=== PATIENT | male | born 1965 | race Caucasian/White ===

== ENCOUNTER 2023-11-30 18:26 | Emergency (ER) | payer MEDICARE, MEDICAID, SELFPAY ==
--- NOTE | ~2023-11-30 | CT_ITS ---
EXAMINATION: CT HEAD WITHOUT CONTRAST CLINICAL INFORMATION: Posterior head pain status post coughing fit. COMPARISON: None available at time of dictation. TECHNIQUE: Contiguous axial imaging was performed from the skull base to vertex without intravenous administration of contrast. This CT examination was performed using dose optimization techniques as appropriate, variously including the following: *Automated exposure control *Adjustment of mA and/or kV according to patient size (this includes techniques or standardized protocols for targeted exams where dose is matched to indication/reason for exam; i.e. extremities or head) *Use of iterative reconstruction technique DLP: 1519 mGy-cm FINDINGS: There is acute subarachnoid hemorrhage centered within the prepontine cistern which extends into the left sylvian fissure and into the anterior aspect of the third ventricle. Blood extends inferiorly along the anterior surface of the kalani. The epicenter of the hemorrhage appears to be at the level of the basilar apex where there is a 1.7 x 1.4 cm blood clot. Underlying basilar artery aneurysm is suspected. There is frontal encephalomalacia. No evidence of acute/subacute cerebral or cerebellar infarction. No midline shift. The temporal horns appear minimally enlarged. No gross hydrocephalus. There is a small anterior right middle cranial fossa arachnoid cyst. The orbits are symmetric and within normal limits. The calvarium is intact. The mastoid air cells are clear. Visualized paranasal sinuses are well aerated. CT/CT head/brain wo IV con IMPRESSION: There is acute subarachnoid hemorrhage centered within the prepontine cistern which extends into the left sylvian fissure and into the anterior aspect of the third ventricle. Blood extends inferiorly along the anterior surface of the kalani. The epicenter of the hemorrhage appears to be at the level of the basilar apex where there is a 1.7 x 1.4 cm blood clot. 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 CTA of head and neck is recommended. This critical result was discussed with GLADYS Martinez at 7:50 PM on 11/30/2023 and it was ascertained that the content and urgency of the report was understood at the time of direct communication.
--- NOTE | ~2023-11-30 | CT_ITS ---
EXAMINATION: CT ANGIOGRAM HEAD CT ANGIOGRAM NECK CLINICAL INFORMATION: Subarachnoid hemorrhage COMPARISON: CT head 11/30/2023 TECHNIQUE: Test bolus sequences followed by intravenous administration 70 mL of Omnipaque 350. Helical imaging was performed in the axial plane from the aortic arch to the skull vertex. Delayed postcontrast imaging of the head was also performed. The data was processed at the blood bank laboratory technologist's workstation for generation of MIP sequences. Angled MIPs and volume rendered reformatted images were also generated at an offline 3D workstation. Stenoses are assessed in accordance with David et al. Quantification of Carotid Stenosis on CT Angiography. AJR 2006. 27(1):13-19. [address] CT examination was performed using dose optimization techniques as appropriate, variously including the following: *Automated exposure control *Adjustment of mA and/or kV according to patient size (this includes techniques or standardized protocols for targeted exams where dose is matched to indication/reason for exam; i.e. extremities or head) *Use of iterative reconstruction technique DLP: 1619.95 mGy-cm FINDINGS: CT HEAD: Aneurysmal distribution of subarachnoid hemorrhage centered within the suprasellar cistern, extending into the lamina terminalis, left MCA cistern, and inferiorly within the posterior fossa cisterns is again noted. Redemonstrated presumably posttraumatic chronic encephalomalacia/gliosis within the anteroinferior frontal lobes, anterior bilateral temporal lobes, and left lateral temporal lobe. Query small hemorrhagic contusion within the anterior left temporal pole for which continued attention on follow-up imaging is advised. The orbits are grossly normal. Trace polypoid mucosal disease in the right maxillary sinus. Osseous structures are intact. CTA HEAD: There is a somewhat irregular lobulated morphology inferomedially projecting 2.8 mm saccular aneurysm arising from the right paraophthalmic ICA and smaller 2 mm inferomedially projecting left paraophthalmic ICA saccular aneurysm arising at a similar level. No other intracranial saccular aneurysms specifically without evidence of a ruptured basilar artery aneurysm. The right superior cerebellar artery is diminutive demonstrating poor contrast opacification beyond its origin, which may be on the basis of small vessel caliber below resolution of this examination however a component of vasospasm is not excluded. Otherwise, no evidence of vasospasm with otherwise widely patent anterior and posterior circulation. Trace calcific plaque along the left cavernous ICA without stenosis. No high flow vascular malformations. Timing of the contrast bolus allows assessment of the major dural venous sinuses, which all opacify normally CTA NECK: Classic 3 vessel branching pattern of the aortic arch. Origins of the great vessels are widely patent. Aneurysmal dilatation of the left subclavian artery origin measuring up to 2.1 cm. The common carotid arteries are widely patent. Trace partially calcified atherosclerosis of the carotid bifurcations without stenosis. Widely patent internal carotid arteries. The vertebral arteries are codominant The vertebral artery ostia are widely patent. Both vertebral arteries are widely patent throughout their extracranial cervical course. CT NECK: The asymmetric enlargement and heterogeneous enhancement of the left palatine tonsillar fossa (image 67, series 6), which may reflect asymmetric tonsillar tissue however recommend correlation with direct inspection to exclude underlying mucosal lesion. Soft tissue along the base of tongue partially effacing the vallecula, presumably lingual tonsillar hyperplasia. Reversal of the normal cervical lordosis and cervical spondylitic disease. Elongated and ossified right styloid process can be correlated for [place]field syndrome. Left posterior maxillary molar dental justin. CT/CT angio head neck IMPRESSION: 1. Redemonstrated aneurysmal distribution of subarachnoid hemorrhage centered within the basilar cisterns as above. 2. Query possible small hemorrhagic contusion within the anterior left temporal pole for which continued attention on follow-up imaging is advised. 3. Redemonstrated presumably posttraumatic chronic encephalomalacia/gliosis within the anteroinferior frontal lobes, anterior bilateral temporal lobes, and left lateral temporal lobe. 4. Somewhat irregular lobulated morphology inferomedially projecting 2.8 mm saccular aneurysm arising from the right paraophthalmic ICA and smaller 2 mm inferomedially projecting left paraophthalmic ICA saccular aneurysm arising at a similar level. 5. No other intracranial saccular aneurysms specifically without evidence of a ruptured basilar artery aneurysm. 6. The right superior cerebellar artery is diminutive demonstrating poor contrast opacification beyond its origin, which may be on the basis of small vessel caliber below resolution of this examination however a component of vasospasm is not excluded. Otherwise, no evidence of vasospasm is seen. 7. Aneurysmal dilatation of the left subclavian artery origin measuring up to 2.1 cm. 8. Widely patent cervical vasculature. 9. Asymmetric enlargement and heterogeneous enhancement of the left palatine tonsillar fossa (image 67, series 6), which may reflect asymmetric tonsillar tissue however recommend correlation with direct inspection to exclude underlying mucosal lesion. Impression 2 and 4 communicated to Severo GRAHAM on 11/30/2023 at 21:14.
[2023-11-30 18:35] VITALS: BP 178/102; PULSE 68; RESP 20; TEMP 37.1; O2SAT 97; BMI 30.6
--- NOTE | 2023-11-30 18:37 | ED.HA ---
HPI - Headache General Chief Complaint: Headache Stated Complaint: headache 4 days, felt a pop in head Time Seen by Provider: 11/30/23 19:28 Source: patient, RN notes reviewed and old records reviewed Mode of arrival: ambulatory Limitations: no limitations History of Present Illness ED Provider: Susan FISH Narrative: 50-year-old male with past medical history significant for remote TBI about 40 years ago, denies any medical history presents for evaluation of a headache. Patient reports that 4 days ago, on Monday he had a coughing fit He reports that while coughing he felt a pop in the back of his head and his neck He felt a warm sensation that he describes as ?it felt like blood rushing up the back of my neck. ? Patient states that he vomited 1 time on Monday He has felt a posterior headache and pressure behind his eyes ever since that he feels has been getting gradually worse Patient complains of 8/10 headache. He has been taking ibuprofen and Tylenol at home with no improvement He reports feeling dizzy He has not had any difficulty with speech and denies any weakness Related Data Allergies Allergy/AdvReac Type Severity Reaction Status Date / Time No Known Allergies Allergy Verified 11/30/23 18:40 Review of Systems Constitutional: Constitutional: Denies body ache(s), Denies chills, Denies fever(s) and Reports headache(s) Eyes: Eyes: Denies blurry vision and Denies exophthalmos ENT: Reports dizziness and Reports headache(s) Cardiovascular: Cardiovascular: Denies chest pain and Denies dyspnea Respiratory: Respiratory: Denies cough and Denies dyspnea Gastrointestinal: Gastrointestinal: Denies abdominal pain, Denies nausea and Reports vomiting Musculoskeletal: Musculoskeletal: Denies back pain Integumentary/Breasts: Skin/Breast: Denies rash Neurologic: Denies confusion, Reports dizziness and Reports headache(s) Psychiatric: Psychiatric: Denies confusion PMFSH Social History Social History Smoked in Last 30 Days: No Advance Directives: No Advance Directives Information Provided: No Do you have a plan to hurt others: No Plan Physical Exam Vital Signs: Vital Signs: Last Vital Signs Temp 98.7 F 11/30/23 21:17 Pulse 75 11/30/23 21:17 Resp 16 11/30/23 21:17 BP 139/78 11/30/23 21:17 Pulse Ox 97 11/30/23 21:17 O2 Del Method Room Air 11/30/23 20:54 BMI result Body Mass Index 30.6 Const: General: No confusion Nutritional Appearance: well nourished Orientation/consciousness: No confusion HEENT: Head: Yes normocephalic and Yes atraumatic Throat: Yes posterior oropharynx normal Eyes: Eyelids: Yes eyelids normal Conjunctivae: conjunctivae normal Sclerae: sclerae normal Corneas: corneas normal Pupils: Equal, round and reactive pupils present EOM: EOMs intact bilaterally Neck: Neck: Yes full ROM Resp: Effort & Inspection: normal respiratory effort, able to speak in complete sentences and not labored Cardio: Rate: regular rate Rhythm: regular rhythm GI: Inspection: No distended Palpation (GI): Soft to palpation, not firm, nontender, no guarding and not rigid Skin: General skin exam: elasticity normal Neuro: General: No confusion Cranial nerves: Yes CN's II-XII intact bilaterally, Yes Equal, round and reactive pupils present and Yes Bilaterally intact EOM present Cognition (Neuro): normal cognition Course Course Course Narrative: This is a Rapid Medical Examination (RME) performed by Bea Nava PA-C in triage. Full HPI, ROS, assessment and treatment plan per primary provider in the Main ED. 58 year old male hx of bipolar and depression here for eval of posterior headache x4 days. reports that during coughing fit her felt a pop in his posterior neck and felt warm sensation donald into the back of his head. reports constant LACY since with pressure behind his eyes. taking motrin at home w/o relief. last dose 4 hours ago. Not on anticoagulation. + exam nonfocal. cerebellum intact. ambulating with steady gait. perrla. No slurred speech. No pronator drift. No facial droop. Hypertensive to 148/102. > discussed with attending Dr. Olivier who is agreeable with dry CT > open hearth melter aware, patient being brought back to ED bed. Plan: Labs, CT head/brain Reevaluation(s) Reevaluation #1: Received call from Teleradiology the patient has an acute subarachnoid hemorrhage. It was recommended to get a CT angiography of the head and neck which are ordered. I also called [facility] transfer line. I discussed with the cosmetic account coordinator and I am awaiting call back from Neurointerventional. Time: 20:09 Reevaluation #2: Received call back from [facility], I spoke to Dr. Maldonado, neuro interventionalist. She will accept transfer of care under her service. She recommends starting nicardipine drip and keeping the patient's blood pressure under 140 systolic. All imaging will be uploaded for [facility] to be able to view on [facility], and disc will be provided as well for transport. Time: 20:28 Medications Administered Discontinued Medications Generic Name Dose Route Start Last Admin Trade Name Jacob PRN Reason Stop Dose Admin Hydromorphone HCl 1 mg 11/30/23 20:29 11/30/23 20:42 Hydromorphone Hcl 1 Mg/Ml Syringe IVPUSH 11/30/23 20:30 1 mg ONCE ONE Administration Protocol Nicardipine HCl 25 mg/ Sodium 260 mls @ 0 mls/hr 11/30/23 20:30 11/30/23 20:45 Chloride IVCONT 5 mg/hr .Q0M FRANKIE 52 mls/hr Administration Protocol Per Protocol Iohexol 100 ml 11/30/23 20:25 11/30/23 20:26 Iohexol 350 Mg/Ml 100 Ml Infus..Btl IV 11/30/23 20:26 70 ml ONCE ONE Administration Labetalol HCl 5 mg 11/30/23 19:59 11/30/23 20:06 Labetalol Hcl 100 Mg/20 Ml Vial IVPUSH 11/30/23 20:00 5 mg ONCE ONE Administration Metoclopramide HCl 10 mg 11/30/23 19:59 11/30/23 20:08 Metoclopramide Hcl 10 Mg/2 Ml Vial IVPUSH 11/30/23 20:00 10 mg ONCE ONE Administration Morphine Sulfate 4 mg 11/30/23 19:59 11/30/23 20:08 Morphine Sulfate 4 Mg/Ml Cartridge IVPUSH 11/30/23 20:00 4 mg ONCE ONE Administration Protocol Medical Decision Making Medical Decision Making MDM Narrative: 58-year-old male presents for evaluation of a sudden onset headache that started 4 days prior to arrival. His CT scan shows a subarachnoid hemorrhage in his acute center within the prepontine cistern which extends into the left sylvian fissure and into the anterior aspect of the 3rd ventricle. The hemorrhage appears to begin at the level of the basilar apex. CT angiography of the head and neck is recommended. In the meantime I am working on getting the patient transferred to tertiary facility with neuro interventional capabilities Differential Diagnosis Differential Diagnoses: The differential diagnosis associated with the presentation includes Subarachnoid hemorrhage Acute headache Hypertension Subdural hematoma Lab Data MDM Lab Attestation statement: I reviewed the patient's lab results. Mild leukocytosis to 12.3 K. There is also a mild anemia with a hemoglobin of 13.5 and hematocrit 38.3. 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 Patient's potassium is just below normal at 3.2, chloride of 110, anion gap of 11 and a glucose of 118 which was random. 11/30/23 19:07 11/30/23 19:07 Labs: Lab Results 11/30/23 11/30/23 Range/Units 19:07 20:40 WBC 12.3 H (4.8-10.8) X10*3/uL RBC 4.35 L (4.60-5.80) X10*6/uL Hgb 13.5 L (14.0-18.0) g/dl Hct 38.3 L (42.0-52.0) % MCV 88.0 (80.0-98.0) fL MCH 31.0 (27.0-33.0) pg MCHC 35.2 (31.0-36.0) g/dl RDW 12.7 (11.0-16.0) % Plt Count 241 (160-400) X10*3/uL MPV 9.3 L (9.4-12.4) fL Immature Gran % (Auto) 0.2 (0.0-0.4) % Neut % (Auto) 75.3 H (45-73) % Lymph % (Auto) 13.7 L (20-40) % [place] % (Auto) 9.7 (2-11) % Eos % (Auto) 0.8 (0-4) % Baso % (Auto) 0.3 (0-2) % Lymph # (Auto) 1.7 (1.2-4.9) X10*3/uL [place] # (Auto) 1.2 (0.1-1.2) X10*3/uL Eos # (Auto) 0.1 (0.0-0.4) X10*3/uL Baso # (Auto) 0.0 (0.0-0.2) X10*3/uL Abs Immat Gran (auto) 0.03 (0.00-0.03) X10*3/uL Absolute Neuts (auto) 9.2 H (2.0-8.3) x10*3/uL Absolute Nucleated RBC 0.000 (0.0-0.012) X10*3/uL Nucleated RBC % (auto) 0.0 (0.0-0.2) /100WBC PT 11.9 (11.1-13.3) SEC INR 1.0 (0.9-1.1) Sodium 141 (135-145) mmol/L Potassium 3.2 L (3.3-5.1) mmol/L Chloride 110 H (96-108) mmol/L Carbon Dioxide 23 (22-29) mmol/L Anion Gap 11 L (12-20) BUN 11 (9-16) mg/dL Creatinine 1.27 (0.5-1.4) mg/dL Estim Creat Clear Calc 76.1 Estimated GFR 58 Random Glucose 118 H (60-115) mg/dL Calcium 9.0 (8.4-10.2) mg/dL Magnesium 1.8 (1.6-2.6) mg/dL Total Bilirubin 0.6 (0.0-1.0) mg/dL AST 17 (5-37) U/L ALT 12 (0-40) U/L Alkaline Phosphatase 62 (39-117) U/L Total Protein 6.8 (6.5-8.0) g/dL Albumin 4.1 (3.5-5.0) g/dL COVID-19 ([facility]LMA) Negative (Negative) COVID-19 Clin Com See Note Independent Interpretation I performed an independent interpretation of an: CT Scan (Appreciate Radiology interpretation of acute subarachnoid hemorrhage) Radiology Impression Discussion of test interpretation with radiology: I have reviewed the radiologist's reading. Radiologist Impression: CT/CT head/brain wo IV con IMPRESSION: There is acute subarachnoid hemorrhage centered within the prepontine cistern which extends into the left sylvian fissure and into the anterior aspect of the third ventricle. Blood extends inferiorly along the anterior surface of the kalani. The epicenter of the hemorrhage appears to be at the level of the basilar apex where there is a 1.7 x 1.4 cm blood clot. 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 CTA of head and neck is recommended. This critical result was discussed with GLADYS Martinez at 7:50 PM on 11/30/2023 and it was ascertained that the content and urgency of the report was understood at the time of direct communication. Critical Care Time Critical Care Time Critical Care Time: Yes Total Critical Care Time: 35 Attestation: Patient has an acute subarachnoid hemorrhage, required transfer to tertiary facility, frequent re-evaluations and nicardipine drip. Discharge Plan Discharge Clinical Impression: Subarachnoid hemorrhage Patient Disposition: Xfer [facility] Transfer Details: [facility] NCCU Interventions: Acute Care Transfer Worksheet (ED) Last Done: 11/30/23 21:17 Discharge Date/Time: 11/30/23 21:36 Print Language: [place]ib[place]ian
[2023-11-30 19:11] LABS: MANUAL DIFF FLAG NO
[2023-11-30 19:13] LABS: Basophils Percent Auto 0.3 % (0-2); Eosinophils Absolute Auto 0.1 X10*3/uL (0.0-0.4); Eosinophils Percent Auto 0.8 % (0-4); Hematocrit 38.3 % (42.0-52.0); Hemoglobin 13.5 g/dl (14.0-18.0); Imm Gran Abs Auto 0.03 X10*3/uL (0.00-0.03); Imm Gran Pct Auto 0.2 % (0.0-0.4); Lymphocytes Absolute Auto 1.7 X10*3/uL (1.2-4.9); Lymphocytes Percent Auto 13.7 % (20-40); Mean Corpuscular HGB Conc 35.2 g/dl (31.0-36.0); Mean Platelet Volume 9.3 fL (9.4-12.4); Monocytes Absolute Auto 1.2 X10*3/uL (0.1-1.2); Monocytes Percent Auto 9.7 % (2-11); Neutrophils Absolute Auto 9.2 x10*3/uL (2.0-8.3); Neutrophils Percent Auto 75.3 % (45-73); Platelet Count 241 X10*3/uL (160-400); Red Blood Count 4.35 X10*6/uL (4.60-5.80); Red Cell Distribution Width 12.7 % (11.0-16.0); White Blood Count 12.3 X10*3/uL (4.8-10.8)
[2023-11-30 19:32] LABS: Alanine Aminotransferase 12 U/L (0-40); Albumin Level 4.1 g/dL (3.5-5.0); Alkaline Phosphatase 62 U/L (39-117); Anion Gap 11 (12-20); Aspartate Amino Transferase 17 U/L (5-37); Bilirubin Total 0.6 mg/dL (0.0-1.0); Blood Urea Nitrogen 11 mg/dL (9-16); Carbon Dioxide 23 mmol/L (22-29); Chloride 110 mmol/L (96-108); Creatinine Clr Calc Pharmacy 76.1; Estimated Glomerular Filt Rate 58; Glucose Random 118 mg/dL (60-115); Magnesium 1.8 mg/dL (1.6-2.6); Potassium 3.2 mmol/L (3.3-5.1); Sodium 141 mmol/L (135-145); Total Protein 6.8 g/dL (6.5-8.0)
[2023-11-30 19:42] LABS: Prothrombin Time 11.9 SEC (11.1-13.3)
[2023-11-30 19:58] VITALS: BP 182/87; PULSE 74; RESP 18; O2SAT 96
[2023-11-30] MEDS: Labetalol HCL 100 MG/20 ML VIAL IVPUSH (20:06)
[2023-11-30] MEDS: Metoclopramide HCl 10 MG/2 ML VIAL IVPUSH (20:08)
[2023-11-30] MEDS: Morphine Sulfate 4 MG/ML CARTRIDGE IVPUSH (20:08)
[2023-11-30 20:11] VITALS: BP 165/93; PULSE 73
[2023-11-30] MEDS: iohexoL 350 MG/ML 100 ML INFUS..BTL IV (20:26)
--- NOTE | 2023-11-30 20:28 | PC.NURSE ---
pt refused covid swab at his time , provider made aware
[2023-11-30] MEDS: HYDROmorphone HCl 1 MG/ML SYRINGE IVPUSH (20:42)
[2023-11-30 20:45] VITALS: BP 156/84; PULSE 66; PULSE 72; RESP 17; O2SAT 97
[2023-11-30] MEDS: niCARdipine HCL 25 MG in 0.9 % Sodium Chloride 250 ML 52 MG IVCONT (20:45)
[2023-11-30 20:54] VITALS: BP 139/78; PULSE 75; RESP 16; O2SAT 97
[2023-11-30 21:00] LABS: COVID-19 Test Negative (Negative); IDNOW Serial# 58CA691E
--- NOTE | 2023-11-30 21:16 | PC.NURSE ---
nurse to nurse report given to - Freddy
[2023-11-30 21:17] VITALS: BP 139/78; PULSE 75; RESP 16; TEMP 37.1; O2SAT 97
== END 2023-11-30 21:36 | disposition short-term general hospital (02) ==
PROVIDERS: Physician Assistant; Physician Assistant Medical; Emergency Provider Emergency Medicine
DX: I60.9 Nontraumatic subarachnoid hemorrhage, unspecified (principal); E87.6 Hypokalemia; R51.9 Headache, unspecified; R05.9 Cough, unspecified; D64.9 Anemia, unspecified; D72.829 Elevated white blood cell count, unspecified; Z11.52 Encounter for screening for COVID-19
CPT/HCPCS: 36415; 70450; 70496; 70498; 80053; 83735; 85025; 85610; 87635; 96374; 96375; 99285; J1170; J1920; J2270; J2404; J2765; Q9967

== ENCOUNTER 2024-04-15 02:22 | Emergency (ER) | payer MEDICARE, MEDICAID, SELFPAY ==
--- NOTE | ~2024-04-15 | XR_ITS ---
EXAMINATION: XR CHEST CLINICAL INFORMATION: Shortness of breath COMPARISON: None available. TECHNIQUE: Frontal view of the chest was obtained. FINDINGS: Normal appearance of the cardiomediastinal structures. No effusions or pneumothoraces. Mild central peribronchial wall thickening is noted along with mild scattered vascular indistinctness. No focal pulmonary consolidation. XR/XR chest 1V IMPRESSION: Mild central peribronchial wall thickening and fine pulmonary reticular opacities. Findings could represent mild pulmonary vascular congestion or bronchitis. No focal pulmonary consolidation. The chronic sequela of asthma could also result in peribronchial wall thickening. Electronically signed by: To Torres MD 04/15/2024 04:25 AM [facility]
--- NOTE | ~2024-04-15 | CT_ITS ---
EXAMINATION: CT HEAD WITHOUT CONTRAST CLINICAL INFORMATION: Headache. History of subarachnoid hemorrhage November 2023. COMPARISON: CT angiography head and neck 11/30/2023. TECHNIQUE: Contiguous axial imaging was performed from the skull base to vertex without intravenous administration of contrast. This CT examination was performed using dose optimization techniques as appropriate, variously including the following: *Automated exposure control *Adjustment of mA and/or kV according to patient size (this includes techniques or standardized protocols for targeted exams where dose is matched to indication/reason for exam; i.e. extremities or head) *Use of iterative reconstruction technique DLP: 744 mGy-cm FINDINGS: CT head: No intracranial hemorrhage, tumors or acute infarcts identified. The lateral anterior inferior frontal encephalomalacia is present similar to findings noted 11/30/2023. Elsewhere, the ventricles and sulci are normal in size and configuration. Partial visualization is made of a PICC line stent within the right internal carotid artery extending from the horizontal segment of the cavernous portion to the approximate level of the right ICA bifurcation. Normal appearance of the orbits and globes. No significant opacification of the visualized paranasal sinuses, mastoid air cells and middle ear cavities. CT/CT head/brain wo IV con IMPRESSION: *No acute intracranial abnormalities. No intracranial hemorrhage. *Chronic bilateral inferior frontal lobe encephalomalacia. *Pipeline endovascular stent noted within the distal right internal carotid artery extending from the horizontal portion of the cavernous segment to the carotid bifurcation. Electronically signed by: To Torres MD 04/15/2024 04:44 AM [facility] [place]
[2024-04-15 02:24] VITALS: BP 134/94; BP 173/94; PULSE 100; PULSE 103; RESP 22; TEMP 37.2; O2SAT 92; O2SAT 94; BMI 31.4
[2024-04-15 02:31] VITALS: BP 134/94; PULSE 100; RESP 28; TEMP 37.2; O2SAT 92
--- NOTE | 2024-04-15 02:50 | ED.SOB ---
HPI - SOB/Dyspnea General Chief Complaint: Dyspnea Stated Complaint: SOB hx Asthma,wheezing all hazel, inhaler no help Time Seen by Provider: 04/15/24 02:25 Source: patient and EMS Mode of arrival: EMS Limitations: no limitations History of Present Illness ED Provider: Dr. Calista Olivier HPI Narrative: Patient comes to the emergency room complaining of shortness of breath. Patient states that he has never been diagnosed with COPD, does have history of asthma, admits that he is a daily smoker. Patient also concerned that he has a mild headache. 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 Patient denies any neurological deficits. Patient denies being on blood thinners Related Data Previous Rx's ?Medication ?Instructions ?Recorded albuterol sulfate 90 mcg/actuation 2 puff inhalation Q4-6H PRN 04/15/24 aerosol inhaler shortness of breath or wheezing #8.5 grams azithromycin 250 mg tablet 250 mg PO DAILY 4 days #4 tabs 04/15/24 cefuroxime axetil 500 mg tablet 500 mg PO BID #9 tabs 04/15/24 prednisone 50 mg tablet 50 mg PO DAILY #4 tabs 04/15/24 Allergies Allergy/AdvReac Type Severity Reaction Status Date / Time No Known Allergies Allergy Verified 04/15/24 02:31 Review of Systems Review of Systems: Constitutional : No Weight loss, No Fever, No Chills, No Night Sweats, No Fatigue, No Malaise ENT/Mouth : No Hearing loss, No Ear Pain, No Nasal Congestion, No Sinus Pain, No Hoarseness, No sore throat, No Rhinorrhea, No Swallowing Difficulty Eyes: No Eye Pain, No Swelling, No Redness, No Foreign Body, No Discharge, No Vision Changes Cardiovascular : No Chest Pain, No SOB, No Dyspnea on Exertion, No Orthopnea, No Edema, No Palpitations Respiratory : Complaining of cough and wheezing, complaining of shortness of breath Gastrointestinal : No Nausea, No Vomiting, No Diarrhea, No Constipation, No abdominal Pain, No Hematochezia, No Melena Genitourinary : no irregular bleeding, No Dysuria, No Urinary Frequency, No Hematuria, No Urinary Incontinence, No Urgency, No Flank Pain, No Urinary Flow Changes, No Hesitancy Musculoskeletal : No joint pain, No Myalgias, No Joint Swelling Skin : No Skin Lesions, No rash Neuro : No Weakness, No Numbness, No Paresthesias, No Loss of Consciousness, No Dizziness, complaining of mild to moderate Headache Psych : No Anxiety/Panic, No Depression, No SI/HI/AH/VH, No Social Issues, Heme/Lymph: No Bruising, No Bleeding,No Lymphadenopathy Endocrine : No Polyuria, No Polydipsia, No Temperature Intolerance [facility] Past Medical History Medical History (Updated 04/15/24 @ 05:59 by Calista Olivier MD) Asthma Subarachnoid hemorrhage Social History Social History Smoked in Last 30 Days: Yes Use of substances other than those prescribed or required for medical reasons: No Advance Directives: No Advance Directives Information Provided: Yes Do you have a plan to hurt others: No Plan Physical Exam Vital Signs: Vital Signs: Last Vital Signs Temp 98.9 F 04/15/24 02:31 Pulse 93 04/15/24 03:52 Resp 26 H 04/15/24 03:52 BP 123/55 L 04/15/24 03:52 Pulse Ox 92 04/15/24 03:52 O2 Del Method Nasal Cannula 04/15/24 03:52 O2 Flow Rate 2 04/15/24 03:52 BMI result Body Mass Index 31.4 Const: Other: Appearance: Alert. Oriented X3. No acute distress. Actively coughing Eyes: Pupils equal, round and reactive to light. ENT: Pharynx normal. Neck: Normal inspection. Neck supple. No lymph nodes noted. No crepitus CVS: Normal heart rate and rhythm. Pulses normal. Normal S1 and S2 Respiratory: Seems uncomfortable, tachypneic respiratory rate close to 30, bilateral wheezing with moderate air movement Abdomen: Soft and nontender. No rigidity. No distention. Skin: Skin warm and dry. Normal skin color. Normal skin turgor. Extremities: No lower extremity edema. No Lacerations. No Rash Neuro: Oriented X 3. No motor deficit. No sensory deficit. Moving all extremities. No slurred speech. CN 2 through 12 grossly intact Psych: calm, cooperative, normal affect Course Course Course Narrative: -per EMS, patient received Solu-Medrol and a breathing treatment. Patient is still wheezing. Patient was given magnesium here in the ED. -all of patient's labs pending. Given patient's history of daily smoking, patient likely has undiagnosed COPD -patient has history of a fairly recent subarachnoid hemorrhage triggered by coughing. Given this history, we will obtain a head CT Medications Administered Discontinued Medications Generic Name Dose Route Start Last Admin Trade Name Shahbazq PRN Reason Stop Dose Admin Acetaminophen 975 mg 04/15/24 03:23 04/15/24 03:51 Acetaminophen 325 Mg Tablet PO 04/15/24 03:24 975 mg ONCE ONE Administration Ceftriaxone Sodium 1 gm 04/15/24 02:50 04/15/24 03:23 Ceftriaxone Sodium 1 Gm Vial IVPUSH 04/15/24 02:51 1 gm ONCE ONE Administration Albuterol Sulfate 7.5 mg/ 0 mg 04/15/24 02:46 04/15/24 02:51 Albuterol/Ipratropium 3 ml INHALE 04/15/24 02:47 10 each ONCE ONE Administration Albuterol Sulfate 5 mg/ 0 mg 04/15/24 03:12 04/15/24 03:25 Albuterol/Ipratropium 3 ml INHALE 04/15/24 03:13 7.5 each ONCE ONE Administration Magnesium Sulfate 2 gm in 50 mls @ 25 mls/hr 04/15/24 02:40 04/15/24 03:06 Magnesium Sulfate/H2o IV 04/15/24 04:39 Infused ONCE ONE Infusion Azithromycin 500 mg/ Sodium 250 mls @ 125 mls/hr 04/15/24 02:50 04/15/24 06:00 Chloride IV 04/15/24 04:49 Infused ONCE ONE Infusion Sodium Chloride 1,000 mls @ 999 mls/hr 04/15/24 02:51 04/15/24 06:00 Ns IVCONT 04/15/24 03:51 Infused .Q1H1M ONE Infusion Medical Decision Making Medical Decision Making MDM Narrative: My interpretation of labs: Patient's hematology does not show any acute abnormality, normal white blood cell count, chemistry does not show any obvious abnormality -chest x-ray : Patient has fine pulmonary reticular opacities, vascular congestion versus bronchitis -patient walking out of the emergency room, oxygen saturation drops 87% -discussed with the patient that I advice for him to stay in the hospital and get admitted. Patient states that unfortunately we can not stay, patient is concerned that his dog is home alone and no one can take care of him. Patient has a make arrangements and states that if he does not improve later, he can return and plan for admission. But at this time, he can not stay -patient received a dose of ceftriaxone and azithromycin. Solu-Medrol, breathing treatments and magnesium Times, patient's oxygen saturation drops to 86%. Patient's nurse and I tried to convince him to stay but patient's main concern is his dog, and found care for him. Patient states that at this time he does need to go home and will make arrangements and come back. Patient is aware that he will be leaving against medical advice. Is expected that patient will returned later today for admission Patient aware that if he leaves AMA, this could be life threatening. Patient's flu/influenza results are not back yet, patient aware Differential Diagnosis Differential Diagnoses: The differential diagnosis associated with the presentation includes (Undiagnosed COPD, asthma, pneumonia) Admission/Observation Consideration of admission/observation: Escalation of care including admission/observation considered (Admission was advised but patient respectfully declined) Lab Data MDM Lab Attestation statement: I reviewed the patient's lab results. 04/15/24 03:11 04/15/24 03:11 Labs: Lab Results 04/15/24 Range/Units 03:11 WBC 8.6 (4.8-10.8) X10*3/uL RBC 4.96 (4.60-5.80) X10*6/uL Hgb 15.2 (14.0-18.0) g/dl Hct 43.1 (42.0-52.0) % MCV 86.9 (80.0-98.0) fL MCH 30.6 (27.0-33.0) pg MCHC 35.3 (31.0-36.0) g/dl RDW 12.5 (11.0-16.0) % Plt Count 231 (160-400) X10*3/uL MPV 9.7 (9.4-12.4) fL Immature Gran % (Auto) 0.2 (0.0-0.4) % Neut % (Auto) 67.2 (45-73) % Lymph % (Auto) 13.1 L (20-40) % [place] % (Auto) 19.2 H (2-11) % Eos % (Auto) 0.1 (0-4) % Baso % (Auto) 0.2 (0-2) % Lymph # (Auto) 1.1 L (1.2-4.9) X10*3/uL [place] # (Auto) 1.7 H (0.1-1.2) X10*3/uL Eos # (Auto) 0.0 (0.0-0.4) X10*3/uL Baso # (Auto) 0.0 (0.0-0.2) X10*3/uL Abs Immat Gran (auto) 0.02 (0.00-0.03) X10*3/uL Absolute Neuts (auto) 5.8 (2.0-8.3) x10*3/uL Absolute Nucleated RBC 0.000 (0.0-0.012) X10*3/uL Nucleated RBC % (auto) 0.0 (0.0-0.2) /100WBC Smear Tech's Comments VERIFIED Sodium 137 (135-145) mmol/L Potassium 3.3 (3.3-5.1) mmol/L Chloride 103 (96-108) mmol/L Carbon Dioxide 21 L (22-29) mmol/L Anion Gap 16 (12-20) BUN 14 (9-16) mg/dL Creatinine 1.16 (0.5-1.4) mg/dL Estim Creat Clear Calc 83.4 Estimated GFR > 60 Random Glucose 161 H (60-115) mg/dL Calcium 9.3 (8.4-10.2) mg/dL Total Bilirubin 1.0 (0.0-1.0) mg/dL Direct Bilirubin 0.3 (0.0-0.5) mg/dL AST 53 H (5-37) U/L ALT 28 (0-40) U/L Alkaline Phosphatase 97 (39-117) U/L Total Protein 7.7 (6.5-8.0) g/dL Albumin 4.3 (3.5-5.0) g/dL Independent Interpretation I performed an independent interpretation of an: Plain X-Ray Radiology Impression Discussion of test interpretation with radiology: I have reviewed the radiologist's reading. Radiologist Impression: Mild central peribronchial wall thickening and fine pulmonary reticular opacities. Findings could represent mild pulmonary vascular congestion or bronchitis. No focal pulmonary consolidation. The chronic sequela of asthma could also result in peribronchial wall thickening. Critical Care Time Critical Care Time Critical Care Time: Yes Total Critical Care Time: 60 Attestation: I have personally provided critical care time. Time includes review of lab data, radiology results, discussion with consultants, and monitoring for potential decompensation. Intervention performed as documented. Discharge Plan Discharge Clinical Impression: Asthma with exacerbation, Pneumonia Patient Disposition: Left Against Medical Advice Instructions: Asthma (ED), Pneumonia (ED) Additional Instructions: Please follow-up with your primary care physician tomorrow. If you have any worsening or new symptoms, please return to the emergency room or call 911 Prescriptions: New azithromycin 250 mg tablet 250 mg PO DAILY 4 Days Qty: 4 0RF Rx Instructions: start on day 2 of therapy cefuroxime axetil 500 mg tablet 500 mg PO BID Qty: 9 0RF prednisone 50 mg tablet 50 mg PO DAILY Qty: 4 0RF albuterol sulfate 90 mcg/actuation HFA aerosol inhaler 2 puff inhalation Q4-6H PRN (Reason: shortness of breath or wheezing) Qty: 8.5 1RF Print Language: Gambian
[2024-04-15] MEDS: Magnesium Sulfate/H2O 2 GM/50 ML PIGGYBACK IV (02:51)
[2024-04-15] MEDS: Albuterol Sulfate 7.5 MG, Albuterol/Iprat 2.5/0.5MG 3 ML 3 ML INHALE (02:51)
[2024-04-15 02:53] VITALS: PULSE 103; RESP 24; O2SAT 93
[2024-04-15 03:15] LABS: Basophils Percent Auto 0.2 % (0-2); Eosinophils Percent Auto 0.1 % (0-4); Hematocrit 43.1 % (42.0-52.0); Hemoglobin 15.2 g/dl (14.0-18.0); Imm Gran Abs Auto 0.02 X10*3/uL (0.00-0.03); Imm Gran Pct Auto 0.2 % (0.0-0.4); Lymphocytes Absolute Auto 1.1 X10*3/uL (1.2-4.9); Lymphocytes Percent Auto 13.1 % (20-40); MANUAL DIFF FLAG SCAN; Mean Corpuscular HGB Conc 35.3 g/dl (31.0-36.0); Mean Corpuscular Hemoglobin 30.6 pg (27.0-33.0); Mean Corpuscular Volume 86.9 fL (80.0-98.0); Mean Platelet Volume 9.7 fL (9.4-12.4); Monocytes Absolute Auto 1.7 X10*3/uL (0.1-1.2); Monocytes Percent Auto 19.2 % (2-11); Neutrophils Absolute Auto 5.8 x10*3/uL (2.0-8.3); Neutrophils Percent Auto 67.2 % (45-73); Platelet Count 231 X10*3/uL (160-400); Red Blood Count 4.96 X10*6/uL (4.60-5.80); Red Cell Distribution Width 12.5 % (11.0-16.0); SCAN SMEAR FLAG 1; White Blood Count 8.6 X10*3/uL (4.8-10.8)
[2024-04-15] MEDS: cefTRIAXone sodium 1 GM VIAL IVPUSH (03:23)
[2024-04-15] MEDS: 0.9 % Sodium Chloride 1,000 ML 999 ML IVCONT (03:24)
[2024-04-15] MEDS: Albuterol Sulfate 5 MG, Albuterol/Iprat 2.5/0.5MG 3 ML 3 ML INHALE (03:25)
[2024-04-15] MEDS: Azithromycin 500 MG in 0.9 % Sodium Chloride 250 ML 125 MG IV (03:26)
[2024-04-15 03:32] LABS: Alanine Aminotransferase 28 U/L (0-40); Albumin Level 4.3 g/dL (3.5-5.0); Alkaline Phosphatase 97 U/L (39-117); Anion Gap 16 (12-20); Aspartate Amino Transferase 53 U/L (5-37); Bilirubin Direct 0.3 mg/dL (0.0-0.5); Blood Urea Nitrogen 14 mg/dL (9-16); Calcium 9.3 mg/dL (8.4-10.2); Carbon Dioxide 21 mmol/L (22-29); Chloride 103 mmol/L (96-108); Creatinine Clr Calc Pharmacy 83.4; Estimated Glomerular Filt Rate > 60; Glucose Random 161 mg/dL (60-115); Potassium 3.3 mmol/L (3.3-5.1); Sodium 137 mmol/L (135-145); Total Protein 7.7 g/dL (6.5-8.0)
[2024-04-15 03:33] LABS: SLIDE REVIEW VERIFIED
[2024-04-15] MEDS: Acetaminophen 325 MG TABLET 975 MG PO (03:51)
[2024-04-15 03:52] VITALS: BP 123/55; PULSE 93; RESP 26; O2SAT 92
--- NOTE | 2024-04-15 05:48 | MHC.EDTECH ---
Pt ambulates well with a steady gait. PT O2 levels at 89% most of the walk around the ED dropping to 88% towards the end. PT HR climed to 160 towards the end but stayed between 100-130.
[2024-04-15 06:18] VITALS: BP 145/76; PULSE 89; RESP 26; TEMP 36.3; O2SAT 92
[2024-04-15 06:20] VITALS: BP 145/76; PULSE 89; RESP 26; TEMP 36.3; O2SAT 92
[2024-04-15 06:26] LABS: COVID-19 Test Negative (Negative); IDNOW Serial# 55D5AD1C; IDNOW Serial# 58CA691E; Influenza A Negative (Negative); Influenza B2 Negative (Negative)
== END 2024-04-15 07:12 | disposition left against medical advice (07) ==
PROVIDERS: Emergency Provider Emergency Medicine
DX: J18.9 Pneumonia, unspecified organism (principal); J45.901 Unspecified asthma with (acute) exacerbation; R06.02 Shortness of breath; J44.9 Chronic obstructive pulmonary disease, unspecified; R51.9 Headache, unspecified
CPT/HCPCS: 36415; 70450; 71045; 80048; 80076; 85025; 87502; 87635; 94640; 99285; J0456; J0696; J3475

== ENCOUNTER 2024-04-16 10:31 | Inpatient (IN) | payer MEDICARE, MEDICAID, SELFPAY ==
[2024-04-16] VITALS (9 sets, daily range): BP systolic 122–151; BP diastolic 63–93; PULSE 78–101; RESP 18–27; TEMP 36.4–36.9; O2SAT 94–99; BMI 28.7; BMI 29.7
--- NOTE | ~2024-04-16 | XR_ITS ---
EXAMINATION: XR CHEST CLINICAL INFORMATION: Shortness of breath, cough, rule out pneumonia. COMPARISON: 04/15/2024. TECHNIQUE: 2 frontal views of the chest was obtained. FINDINGS: There is no gross pneumothorax. Degenerative changes in the thoracic spine. Heart size is normal. Redemonstration of mild central peribronchial wall thickening with indistinctness of the vascular/interstitial markings. No significant pleural effusion. No new focal consolidation. XR/XR chest 1V IMPRESSION: Redemonstration of mild central peribronchial wall thickening with indistinctness of the vascular/interstitial markings. No significant pleural effusion. No new focal consolidation. This study was presented today, April 16, 2024, for interpretation. Stat results provided at this time as requested by referring provider. Electronically signed by: Triny Denny MD 04/16/2024 12:11 PM [facility]
--- NOTE | 2024-04-16 10:43 | ED.SOB ---
HPI - SOB/Dyspnea General Chief Complaint: Dyspnea Stated Complaint: DIFF BREATHING, ON CPAP PER EMS Time Seen by Provider: 04/16/24 10:42 Source: patient Mode of arrival: EMS Limitations: no limitations History of Present Illness ED Provider: Dr. Gary Alexandra HPI Narrative: 59-year-old male with a history of asthma,subarachnoid hemorrhage, tobacco use disorder who presents emergency department for evaluation of shortness of breath. Patient was seen in the emergency department yesterday morning (04/15/2024) for similar complaint and left against medical advice. Patient states that he has been short of breath for 2-3 days. Patient states that since leaving the emergency department against medical advice he has been feeling more short of breath. States that he can only walk 2-3 feet before he gets winded. He states he was had shaking chills but denied fever. Patient was brought to emergency department by ambulance. His O2 saturation was 89% on room air, he was placed on CPAP and converted to BiPAP on arrival to the emergency department. Patient was given Solu-Medrol 125 mg IV and 2 nebulizer treatments prior to coming to the emergency department. Related Data Home Medications ?Medication ?Instructions ?Recorded ?Confirmed aripiprazole 5 mg tablet 5 mg BEDTIME 04/16/24 04/16/24 hydroxyzine pamoate 50 mg capsule 50 mg BID PRN Anxiety or Insomnia 04/16/24 04/16/24 sertraline 25 mg tablet 25 mg PO DAILY 04/16/24 04/16/24 Previous Rx's ?Medication ?Instructions ?Recorded albuterol sulfate 90 mcg/actuation 2 puff inhalation Q4-6H PRN 04/15/24 aerosol inhaler shortness of breath or wheezing #8.5 grams Allergies Allergy/AdvReac Type Severity Reaction Status Date / Time No Known Allergies Allergy Verified 04/16/24 10:41 Review of Systems Review of Systems: Yes all other systems are reviewed and are negative PMFSH Past Medical History [facility] Narrative: Social history: Patient smokes 1 pack of cigarettes per day times many years. He denies drug and alcohol use. Medical History Asthma Subarachnoid hemorrhage Social History Social History Household Members: None Housing: Other Housing Other:: trailer Do you presently have visiting nurse or other home services: No Patient Tobacco Use Status: Current everyday Tobacco user Tobacco use type: Cigarette Cigarettes Per Day: 1 Smoked in Last 30 Days: Yes Patient Interested in Nicotine Replacement: No Patient Given Instructions on How to Stop Smoking: No Second Hand Smoke Exposure: No Use of substances other than those prescribed or required for medical reasons: No Currently Displaying Signs/Symptoms of Drug Intoxication Withdrawal: No Have you been hit, kicked, punched, or otherwise hurt by someone within the past year? If so, by whom?: No Do you feel safe in your current relationship?: No Current Relationship Is there a partner from a previous relationship who is making you feel unsafe now?: No Are you made to feel afraid or neglected: No Advance Directives: No Advance Directives Information Provided: Yes Do you have a plan to hurt others: No Plan Recently lost weight without trying: No How much weight loss: Not applicable Eating poorly because of decreased appetite: No Nutrition screen score: 0 Nutrition Risks: No Nutritional Risk Poor oral hygiene: No Physical Exam Vital Signs: Vital Signs: Last Vital Signs Temp 98.7 F 04/17/24 07:29 Pulse 73 04/17/24 07:39 Resp 17 04/17/24 07:39 BP 146/81 H 04/17/24 07:29 Pulse Ox 92 04/17/24 07:29 O2 Del Method Nasal Cannula 04/17/24 07:29 O2 Flow Rate 2 04/17/24 07:29 FiO2 30 04/16/24 11:29 BMI result Body Mass Index 28.7 Vital signs revealed elevated respiratory rate of 25, elevated blood pressure of 155/81, patient was on CPAP on initial presentation Exam: General: Patient appears dyspneic and tachypneic on CPAP, he was able to talk in full sentences Head: Normocephalic, atraumatic EENT: PERRL, Lids normal, sclera normal, conjunctiva normal, nose normal , ears normal, throat without erythema or exudates Neck: Supple, no adenopathy Lung: Diffuse wheezing, rhonchi and rales, breath sounds symmetric bilaterally Chest: symmetric movement, nontender Heart: regular rate and rhythm, normal S1, S2 no murmurs or rubs Abdomen: soft, non-tender, nondistended, normal bowel sounds Back: no vertebral tenderness, no CVAT Extremities: no deformities, moves all extremities symmetrically Neuro: Awake, alert, oriented, normal speech, cranial nerves intact, moves all extremities symmetrically Psych: Pleasant, cooperative Medications Administered Generic Name Dose Route Start Last Admin Trade Name Jacob PRN Reason Stop Dose Admin Albuterol Sulfate 2.5 mg 04/16/24 20:00 04/17/24 07:39 Albuterol Sulfate (0.083%) 2.5 Mg/3 Ml Vial.Neb INHALE 2.5 mg RQ4H WHILE AWAKE FRANKIE Administration Aripiprazole 5 mg 04/16/24 21:00 04/16/24 20:02 Aripiprazole 5 Mg Tablet PO 5 mg BEDTIME FRANKIE Administration Cefuroxime Axetil 500 mg 04/17/24 09:00 04/17/24 09:18 Cefuroxime Axetil 500 Mg Tablet PO 500 mg Q12H FRANKIE Administration Enoxaparin Sodium 40 mg 04/17/24 09:00 04/17/24 08:13 Enoxaparin Sodium 40 Mg/0.4 Ml Syringe SUBCUT Not Given DAILY FRANKIE Methylprednisolone Sodium Succinate 40 mg 04/16/24 21:00 04/17/24 07:54 Methylprednisolone Sod Succ 40 Mg/Ml Vial IVPUSH 40 mg BID FRANKIE Administration Sertraline HCl 25 mg 04/17/24 09:00 04/17/24 07:54 Sertraline Hcl 25 Mg Tablet PO 25 mg DAILY FRANKIE Administration Sodium Chloride 3 ml 04/17/24 00:00 04/17/24 07:55 0.9 % Sodium Chloride Flush 3 Ml Syringe IVFLUSH 3 ml QSHIFT FRANKIE Administration Discontinued Medications Generic Name Dose Route Start Last Admin Trade Name Jacob PRN Reason Stop Dose Admin Albuterol Sulfate 5 mg/ 7.5 mg 04/16/24 10:47 04/16/24 11:03 Albuterol Sulfate 2.5 mg INHALE 04/16/24 10:48 7.5 mg ONCE ONE Administration Albuterol Sulfate 2.5 mg/ 5 mg 04/16/24 12:19 04/16/24 12:23 Albuterol Sulfate 2.5 mg INHALE 04/16/24 12:20 5 mg ONCE ONE Administration Ceftriaxone Sodium 1 gm 04/16/24 14:11 04/16/24 14:37 Ceftriaxone Sodium 1 Gm Vial IVPUSH 04/16/24 14:12 1 gm ONCE ONE Administration Sodium Chloride 1,000 mls @ 999 mls/hr 04/16/24 10:46 04/16/24 12:30 Ns IV 04/16/24 11:46 Infused .Q1H1M STA Infusion Azithromycin 500 mg/ Sodium 250 mls @ 125 mls/hr 04/16/24 14:11 04/16/24 18:34 Chloride IV 04/16/24 16:10 Infused ONCE ONE Infusion Medical Decision Making Medical Decision Making [facility] Narrative: 59-year-old male with a history of asthma,subarachnoid hemorrhage, tobacco use disorder who presents emergency department for evaluation of shortness of breath x2 days with chills and nonproductive cough. Patient was seen in the emergency department earlier this morning but left against medical advice. Since being home he was had increased shortness of breath and increased dyspnea. Paramedics found the patient to be in respiratory distress with an O2 saturation of 89% on room air, patient was given Solu-Medrol 125 mg IV, 2 albuterol nebulizers and transported on CPAP. Patient was converted to BiPAP, lungs were symmetric but he had diffuse rales, wheezing and rhonchi. Differential diagnosis: ?Includes but is not limited to asthma exacerbation, pneumonia, bronchitis, viral syndrome, anemia, electrolyte abnormalities Course: 14:10 Patient's laboratory evaluation is unremarkable. Chest x-ray any focal infiltrates on my interpretation but the patient may have bronchitis based on the radiology reading. Patient was treated with ceftriaxone and Zithromax IV. Patient was treated with a bronchodilator protocol and received an albuterol 7.5 mg and an albuterol 5 mg nebulizers with improvement of his respiratory distress. The patient was on BiPAP for several hours and respiratory therapy was able to change the patient over to 4 L of oxygen via nasal cannula. Patient will need to be admitted for asthma exacerbation caused by bronchitis. I did discuss the patient's presentation and need for admission with the covering hospitalist, nurse practitioner Dee Goncalves. 14:12 The patient's RSV is postiive. Therefore the patient's COPD exacerbation is due to RSV infection. Admission/Observation Consideration of admission/observation: Escalation of care including admission/observation considered (Yes) Lab Data [facility] Lab Attestation statement: I reviewed the patient's lab results. My independent interpretation patient's laboratory evaluation is as follows: WBC was normal 10,600. VBG revealed a pH of 7.46 and a pCO2 of 37. BUN elevated 20. Glucose elevated 120. AST and ALT elevated 82 and 47. BNP was normal at 31. Lipase normal 20. TSH normal 0.65. Ethanol was below detectable limits. COVID-19, RSV and influenza from 06:05 hours was negative. 04/16/24 10:52 04/17/24 05:46 Labs: Lab Results 04/16/24 04/16/24 04/16/24 Range/Units 10:51 10:52 10:57 WBC 10.6 (4.8-10.8) X10*3/uL RBC 5.07 (4.60-5.80) X10*6/uL Hgb 15.5 (14.0-18.0) g/dl Hct 44.5 (42.0-52.0) % MCV 87.8 (80.0-98.0) fL MCH 30.6 (27.0-33.0) pg MCHC 34.8 (31.0-36.0) g/dl RDW 12.8 (11.0-16.0) % Plt Count 252 (160-400) X10*3/uL MPV 9.8 (9.4-12.4) fL Immature Gran % (Auto) 0.4 (0.0-0.4) % Neut % (Auto) 80.6 H (45-73) % Lymph % (Auto) 6.2 L (20-40) % [place] % (Auto) 12.7 H (2-11) % Eos % (Auto) 0.0 (0-4) % Baso % (Auto) 0.1 (0-2) % Lymph # (Auto) 0.7 L (1.2-4.9) X10*3/uL [place] # (Auto) 1.4 H (0.1-1.2) X10*3/uL Eos # (Auto) 0.0 (0.0-0.4) X10*3/uL Baso # (Auto) 0.0 (0.0-0.2) X10*3/uL Abs Immat Gran (auto) 0.04 H (0.00-0.03) X10*3/uL Absolute Neuts (auto) 8.6 H (2.0-8.3) x10*3/uL Absolute Nucleated RBC 0.000 (0.0-0.012) X10*3/uL Nucleated RBC % (auto) 0.0 (0.0-0.2) /100WBC APTT 29.9 (26.0-36.8) SEC VBG pH 7.46 H (7.32-7.43) VBG pCO2 37 mmHg VBG pO2 226 mmHg VBG HCO3 26 (22-26) mmol/L VBG O2 Saturation 99.0 % VBG Base Excess 3.0 mmol/L Sodium 139 (135-145) mmol/L Potassium 4.2 D (3.3-5.1) mmol/L Chloride 106 (96-108) mmol/L Carbon Dioxide 25 (22-29) mmol/L Anion Gap 12 (12-20) BUN 20 H (9-16) mg/dL Creatinine 0.96 (0.5-1.4) mg/dL Estim Creat Clear Calc 96.7 Estimated GFR > 60 Random Glucose 120 H (60-115) mg/dL Lactic Acid 1.2 (0.5-2.0) mmol/L Calcium 8.8 (8.4-10.2) mg/dL Total Bilirubin 0.6 (0.0-1.0) mg/dL AST 82 H (5-37) U/L ALT 47 H (0-40) U/L Alkaline Phosphatase 91 (39-117) U/L B-Natriuretic Peptide 31 (<100) pg/mL Total Protein 8.1 H (6.5-8.0) g/dL Albumin 4.3 (3.5-5.0) g/dL Lipase 20 (8-78) U/L TSH 0.65 (0.32-4.0) uIU/mL Ethyl Alcohol < 10 mg/dL Influenza Type A (PCR) (Negative) Influenza Type B (PCR) (Negative) RSV RNA Qual (PCR) (Negative) SARS-CoV-2 RNA (RT-PCR) (Negative) 04/16/24 Range/Units 14:12 WBC (4.8-10.8) X10*3/uL RBC (4.60-5.80) X10*6/uL Hgb (14.0-18.0) g/dl Hct (42.0-52.0) % MCV (80.0-98.0) fL MCH (27.0-33.0) pg MCHC (31.0-36.0) g/dl RDW (11.0-16.0) % Plt Count (160-400) X10*3/uL MPV (9.4-12.4) fL Immature Gran % (Auto) (0.0-0.4) % Neut % (Auto) (45-73) % Lymph % (Auto) (20-40) % [place] % (Auto) (2-11) % Eos % (Auto) (0-4) % Baso % (Auto) (0-2) % Lymph # (Auto) (1.2-4.9) X10*3/uL [place] # (Auto) (0.1-1.2) X10*3/uL Eos # (Auto) (0.0-0.4) X10*3/uL Baso # (Auto) (0.0-0.2) X10*3/uL Abs Immat Gran (auto) (0.00-0.03) X10*3/uL Absolute Neuts (auto) (2.0-8.3) x10*3/uL Absolute Nucleated RBC (0.0-0.012) X10*3/uL Nucleated RBC % (auto) (0.0-0.2) /100WBC APTT (26.0-36.8) SEC VBG pH (7.32-7.43) VBG pCO2 mmHg VBG pO2 mmHg VBG HCO3 (22-26) mmol/L VBG O2 Saturation % VBG Base Excess mmol/L Sodium (135-145) mmol/L Potassium (3.3-5.1) mmol/L Chloride (96-108) mmol/L Carbon Dioxide (22-29) mmol/L Anion Gap (12-20) BUN (9-16) mg/dL Creatinine (0.5-1.4) mg/dL Estim Creat Clear Calc Estimated GFR Random Glucose (60-115) mg/dL Lactic Acid (0.5-2.0) mmol/L Calcium (8.4-10.2) mg/dL Total Bilirubin (0.0-1.0) mg/dL AST (5-37) U/L ALT (0-40) U/L Alkaline Phosphatase (39-117) U/L B-Natriuretic Peptide (<100) pg/mL Total Protein (6.5-8.0) g/dL Albumin (3.5-5.0) g/dL Lipase (8-78) U/L TSH (0.32-4.0) uIU/mL Ethyl Alcohol mg/dL Influenza Type A (PCR) NEGATIVE (Negative) Influenza Type B (PCR) NEGATIVE (Negative) RSV RNA Qual (PCR) POSITIVE A (Negative) SARS-CoV-2 RNA (RT-PCR) NEGATIVE (Negative) Independent Interpretation I performed an independent interpretation of an: CT Scan Interpretation: My interpretation patient's chest x-ray is as follows: No acute focal infiltrates Radiology Impression Discussion of test interpretation with radiology: I have reviewed the radiologist's reading. Radiologist Impression: XR chest 1V IMPRESSION: Redemonstration of mild central peribronchial wall thickening with indistinctness of the vascular/interstitial markings. No significant pleural effusion. No new focal consolidation. This study was presented today, April 16, 2024, for interpretation. Stat results provided at this time as requested by referring provider. Electronically signed by: Triny Denny MD 04/16/2024 12:11 PM EST Critical Care Time Critical Care Time Critical Care Time: Yes Total Critical Care Time: 80 Attestation: Critical Care: The patient was critically ill with a high probability of imminent or life threatening deterioration. I spent greater than 30 minutes of discontinuous time evaluating the patient,delivering critical care at the bedside, discussing and evaluating pertinent data with consultants. Critical care time does not include time spent performing separately billable procedures or teaching. Total time spent performing critical care was 80 minutes. Discharge Plan Discharge Clinical Impression: Asthma with exacerbation, RSV bronchitis Patient Disposition: Admitted As Inpatient Interventions: Admission Worksheet (ED) Last Done: 04/16/24 18:29 Discharge Date/Time: 04/16/24 19:12
--- NOTE | 2024-04-16 10:47 | ECG_ITS ---
Test Reason : dyspnea Blood Pressure : / mmHG Vent. Rate : 097 BPM Atrial Rate : 097 BPM P-R Int : 134 ms QRS Dur : 080 ms QT Int : 350 ms P-R-T Axes : 082 048 069 degrees QTc Int : 444 ms Normal sinus rhythm Normal ECG No previous ECGs available Referred By: Gary Alexandra Electronically Signed By:DIANE MORGAN
[2024-04-16 10:58] LABS: MANUAL DIFF FLAG NO
--- NOTE | 2024-04-16 11:00 | PC.NURSE ---
patient presented from home via ems, patient on bipap for ems, stated sob at home with copd exac satting 89% on room air. patient additional IV access in left AC #20, labs drawn and sent. patient has #18 from ems in [facility]. patient is alert and oriented x4, speaking in short sentences due to sob. patient medicated per JUN. bilat wheezing noted
[2024-04-16 11:02] LABS: VBG HCO3 26 mmol/L (22-26); VBG pCO2 37 mmHg; VBG pH 7.46 (7.32-7.43); VBG pO2 226 mmHg
[2024-04-16 11:02] LABS: Basophils Percent Auto 0.1 % (0-2); Hematocrit 44.5 % (42.0-52.0); Hemoglobin 15.5 g/dl (14.0-18.0); Imm Gran Abs Auto 0.04 X10*3/uL (0.00-0.03); Imm Gran Pct Auto 0.4 % (0.0-0.4); Lymphocytes Absolute Auto 0.7 X10*3/uL (1.2-4.9); Lymphocytes Percent Auto 6.2 % (20-40); Mean Corpuscular HGB Conc 34.8 g/dl (31.0-36.0); Mean Corpuscular Hemoglobin 30.6 pg (27.0-33.0); Mean Corpuscular Volume 87.8 fL (80.0-98.0); Mean Platelet Volume 9.8 fL (9.4-12.4); Monocytes Absolute Auto 1.4 X10*3/uL (0.1-1.2); Monocytes Percent Auto 12.7 % (2-11); Neutrophils Absolute Auto 8.6 x10*3/uL (2.0-8.3); Neutrophils Percent Auto 80.6 % (45-73); Platelet Count 252 X10*3/uL (160-400); Red Blood Count 5.07 X10*6/uL (4.60-5.80); Red Cell Distribution Width 12.8 % (11.0-16.0); White Blood Count 10.6 X10*3/uL (4.8-10.8)
[2024-04-16] MEDS: Albuterol Sulfate 5 MG, Albuterol Sulfate (0.083%) 2.5 MG 7.5 MG INHALE (11:03)
[2024-04-16] MEDS: 0.9 % Sodium Chloride 1,000 ML 999 ML IV (11:05)
[2024-04-16 11:08] LABS: Venous Blood Gas Refer to POC result
[2024-04-16 11:10] LABS: Partial Thromboplastin Time 29.9 SEC (26.0-36.8)
[2024-04-16 11:15] LABS: Lactic Acid 1.2 mmol/L (0.5-2.0)
[2024-04-16 11:21] LABS: B Type Natriuretic Peptide 31 pg/mL (<100)
[2024-04-16 11:24] LABS: Alanine Aminotransferase 47 U/L (0-40); Albumin Level 4.3 g/dL (3.5-5.0); Alkaline Phosphatase 91 U/L (39-117); Anion Gap 12 (12-20); Aspartate Amino Transferase 82 U/L (5-37); Bilirubin Total 0.6 mg/dL (0.0-1.0); Blood Urea Nitrogen 20 mg/dL (9-16); Calcium 8.8 mg/dL (8.4-10.2); Carbon Dioxide 25 mmol/L (22-29); Chloride 106 mmol/L (96-108); Creatinine Clr Calc Pharmacy 96.7; Estimated Glomerular Filt Rate > 60; Ethanol < 10 mg/dL; Glucose Random 120 mg/dL (60-115); Lipase 20 U/L (8-78); Potassium 4.2 mmol/L (3.3-5.1); Sodium 139 mmol/L (135-145); Total Protein 8.1 g/dL (6.5-8.0)
[2024-04-16 11:56] LABS: TSH reflex Free T4 0.65 uIU/mL (0.32-4.0)
[2024-04-16] MEDS: Albuterol Sulfate 2.5 MG, Albuterol Sulfate (0.083%) 2.5 MG 5 MG INHALE (12:23)
--- NOTE | 2024-04-16 14:18 | PC.NURSE ---
patient is off of bipap, currently on 4lNC, patient appears to be comfortable on the nasal cannula, resp even and unlabored, vss
[2024-04-16] MEDS: cefTRIAXone sodium 1 GM VIAL IVPUSH (14:37)
[2024-04-16 15:01] LABS: Influenza A PCR NEGATIVE (Negative); Influenza B PCR NEGATIVE (Negative); Resp Syncy Virus RNA Qual PCR POSITIVE (Negative); SARS COV2 PCR INHOUSE NEGATIVE (Negative)
[2024-04-16] MEDS: Azithromycin 500 MG in 0.9 % Sodium Chloride 250 ML 125 MG IV (15:12)
--- NOTE | 2024-04-16 16:25 | PHA.MEDREC ---
Pharmacy Consult ? Medication Reconciliation Pharmacy has completed the medication reconciliation. Spoke to patient to confirm med list. Patient states he only takes 3 medications. He confirmed Aripiprazole 5 mg, Hydroxyzine demetrius 50 , and Sertraline 25 mg. when i asked about Amlodipine 10 mg ( last filled) 12/13/23 for 90 days), he says No! I don't know. I don't think so . When asked if he still takes Clopidogrel 75 mg ( last filled 12/13/23 for 90 days) he said NO! Asked patient when the last time he took his medication, Patient states over 3 weeks ago.
--- NOTE | 2024-04-16 16:34 | PHA.MEDREC ---
Addendum entered by Phyllis Reza RPh 04/16/24 17:59: Med rec has been reviewed by [facility]. Original Note: Pharmacy Consult ? Medication Reconciliation Pharmacy has completed the medication reconciliation. Spoke to patient to confirm med list. patient states he is only on 3 medications. He confirmed Aripiprazole 5 mg, Hydroxyzine Pamoate 50 mg, and Sertraline 25 mg. When asked if he is still taking Amlodipine 10 mg( Last filled 12/13/23 for 90 days), Patient says NO! I don't think so. I'm not sure . Patient insists he is no longer taking Clopidogrel 75 mg ( last filled 12/13/23 for 90 days). Patient states he hasn't started Azithromycin 250mg, Cefuroxime axetil 500 mg and Prednisone 50 mg ( last fill date 04/15/24). Patient states he hasn't took any of his medication in over 3 weeks.
--- NOTE | 2024-04-16 17:02 | PM.IMHP ---
History of Present Illness Date of Service: 04/16/24 Chief Complaint: Shortness of breath 59-year-old male with a history of asthma, HTN, subarachnoid hemorrhage, and tobacco use disorder who was seen in the ED on 04/15 for shortness of breath and exacerbation of COPD. Admission was advised, but he left AMA to care for his dog. He was discharged with Ceftin, prednisone, and inhalers. His symptoms have since worsened, and en route to the ED, he was placed on BiPAP by EMS for an O2 saturation of 89% on room air. In the ED, he was initially put on CPAP, later changed to BiPAP. Further treatment included: IV Solumedrol Nebulizer treatments CXR: No infiltrates but peribronchial thickening. Other findings: No fever, WBC normal. RSV + Review of Systems Review of Systems: Gen: no fever Resp: + sob, no cough CV: no chest, no DOHERTY, no leg edema GI: No n/v, no abd pain Neuro: No confusion [facility] Medical History Asthma Subarachnoid hemorrhage Social History Household Members: None Housing: Other Housing Other:: trailer Do you presently have visiting nurse or other home services: No Patient Tobacco Use Status: Current everyday Tobacco user Tobacco use type: Cigarette Cigarettes Per Day: 1 Smoked in Last 30 Days: Yes Patient Interested in Nicotine Replacement: No Patient Given Instructions on How to Stop Smoking: No Second Hand Smoke Exposure: No Use of substances other than those prescribed or required for medical reasons: No Currently Displaying Signs/Symptoms of Drug Intoxication Withdrawal: No Have you been hit, kicked, punched, or otherwise hurt by someone within the past year? If so, by whom?: No Do you feel safe in your current relationship?: No Current Relationship Is there a partner from a previous relationship who is making you feel unsafe now?: No Are you made to feel afraid or neglected: No Advance Directives: No Advance Directives Information Provided: Yes Do you have a plan to hurt others: No Plan Recently lost weight without trying: No How much weight loss: Not applicable Eating poorly because of decreased appetite: No Nutrition screen score: 0 Nutrition Risks: No Nutritional Risk Poor oral hygiene: No Meds Allergies Allergy/AdvReac Type Severity Reaction Status Date / Time No Known Allergies Allergy Verified 04/16/24 10:41 Home Medications ?Medication ?Instructions ?Recorded ?Confirmed ?Last Taken ?Type aripiprazole 5 mg tablet 5 mg BEDTIME 04/16/24 04/16/24 Unknown History hydroxyzine pamoate 50 mg capsule 50 mg BID PRN Anxiety or Insomnia 04/16/24 04/16/24 Unknown History sertraline 25 mg tablet 25 mg PO DAILY 04/16/24 04/16/24 Unknown History Physical Exam Vital Signs and Narrative: Vital Signs: Last Vital Signs Temp 98.1 F 04/16/24 14:15 Pulse 83 04/16/24 14:15 Resp 20 04/16/24 14:15 BP 122/63 04/16/24 14:15 Pulse Ox 95 04/16/24 14:15 O2 Del Method Nasal Cannula 04/16/24 14:15 O2 Flow Rate 4 04/16/24 14:15 FiO2 30 04/16/24 11:29 BMI result Body Mass Index 28.7 General: AO X 3, no acute distress, talking in full sentences Resp: Diminished BS, no wheezes, no use of accessory muscle CVS: S1,S2,RRR GI: +BS, NT, no distention Skin: No rash Neuro: motor grossly intact Psych: appropriate affect Results Labs 04/16/24 10:52 04/17/24 05:46 Labs: Laboratory Results - last 24 hr 04/16/24 04/16/24 04/16/24 10:51 10:52 10:57 MCV 87.8 MCH 30.6 MCHC 34.8 RDW 12.8 Plt Count 252 MPV 9.8 Immature Gran % (Auto) 0.4 Neut % (Auto) 80.6 H Lymph % (Auto) 6.2 L [place] % (Auto) 12.7 H Eos % (Auto) 0.0 Baso % (Auto) 0.1 Lymph # (Auto) 0.7 L [place] # (Auto) 1.4 H Eos # (Auto) 0.0 Baso # (Auto) 0.0 Abs Immat Gran (auto) 0.04 H Absolute Neuts (auto) 8.6 H Absolute Nucleated RBC 0.000 Nucleated RBC % (auto) 0.0 APTT 29.9 VBG pH 7.46 H VBG pCO2 37 VBG pO2 226 VBG HCO3 26 VBG O2 Saturation 99.0 VBG Base Excess 3.0 Anion Gap 12 Estim Creat Clear Calc 96.7 Estimated GFR > 60 Random Glucose 120 H Lactic Acid 1.2 Calcium 8.8 Total Bilirubin 0.6 AST 82 H ALT 47 H Alkaline Phosphatase 91 B-Natriuretic Peptide 31 Total Protein 8.1 H Albumin 4.3 Lipase 20 TSH 0.65 Ethyl Alcohol < 10 Influenza Type A (PCR) Influenza Type B (PCR) RSV RNA Qual (PCR) SARS-CoV-2 RNA (RT-PCR) 04/16/24 14:12 MCV MCH MCHC RDW Plt Count MPV Immature Gran % (Auto) Neut % (Auto) Lymph % (Auto) [place] % (Auto) Eos % (Auto) Baso % (Auto) Lymph # (Auto) [place] # (Auto) Eos # (Auto) Baso # (Auto) Abs Immat Gran (auto) Absolute Neuts (auto) Absolute Nucleated RBC Nucleated RBC % (auto) APTT VBG pH VBG pCO2 VBG pO2 VBG HCO3 VBG O2 Saturation VBG Base Excess Anion Gap Estim Creat Clear Calc Estimated GFR Random Glucose Lactic Acid Calcium Total Bilirubin AST ALT Alkaline Phosphatase B-Natriuretic Peptide Total Protein Albumin Lipase TSH Ethyl Alcohol Influenza Type A (PCR) NEGATIVE Influenza Type B (PCR) NEGATIVE RSV RNA Qual (PCR) POSITIVE A SARS-CoV-2 RNA (RT-PCR) NEGATIVE Imaging Radiologist's Impressions: Impressions Chest X-Ray 04/16/24 10:47 IMPRESSION: Redemonstration of mild central peribronchial wall thickening with indistinctness of the vascular/interstitial markings. No significant pleural effusion. No new focal consolidation. This study was presented today, April 16, 2024, for interpretation. Stat results provided at this time as requested by referring provider. Electronically signed by: Triny Denny MD 04/16/2024 12:11 PM [facility] Assessment and Plan (1) COPD exacerbation: Status: Acute Plan 59/m smoker here with acute respiratory failure hypoxia in setting RSV infection COPD exacerbtion d/t RSV with hypoxia -IV steroid -Bronchodilators -Doxycyline for bronchitis -symptomatic treatment -O2 PRN, goal of 92% or better HTN--resume home meds Tobacco use -cessation discussed -NRT Mood disorder--continue home meds DVT prophylaxis: lovenox full code admission for managmen of acute hypoxic resp failure d/t RSV, needing Oxygen for hypoxia. Quality Stroke Does the patient have a stroke diagnosis?: No VTE Prior VTE?: No VTE Risk Level:: Medical - moderate - high VTE Device Contraindication: N/A - Device Ordered VTE Drug Contraindication: N/A - Med Ordered
[2024-04-16] MEDS: ARIPiprazole 5 MG TABLET PO (20:02)
[2024-04-16] MEDS: methylPREDNISolone Sod Succ 40 MG/ML VIAL IVPUSH (20:02)
[2024-04-16] MEDS: 0.9 % Sodium Chloride Flush 3 ML SYRINGE IVFLUSH (20:02)
[2024-04-16] MEDS: Albuterol Sulfate (0.083%) 2.5 MG/3 ML VIAL.NEB INHALE (20:08)
[2024-04-17] VITALS (7 sets, daily range): BP systolic 146–147; BP diastolic 71–86; PULSE 67–80; RESP 14–18; TEMP 36.4–37.1; O2SAT 91–94
[2024-04-17 03:57] LABS: Appearance Urine Clear; Color Urine Yellow; Glucose Urine UA Negative (Negative); Leukocyte Esterase Urine Negative (Negative); Nitrite Urine Negative (Negative); PH 5.5 (5.0-9.0); Specific Gravity - Urine >= 1.030 (1.005-1.025); UMIC TRIGGER UACC YES; Urine Blood Moderate (2+) (Negative); Urine Ketones Trace mg/dL (Negative); Urine Protein 30 (1+) mg/dL (Neg-Trace)
[2024-04-17 04:04] LABS: Bacteria Urine None Seen (None Seen); Hyaline Casts Urine 0-2 /LPF (0-2); Squamous Epithelial Cell Urine 0-2 /HPF (0-2); WBC Urine 0-5 /HPF (0-5)
[2024-04-17 04:17] LABS: Amphetamine Screen Urine Not Detected (Not Detect); Barbiturates, Urine Not Detected (Not Detect); Benzodiazepines Screen Urine Not Detected (Not Detect); Buprenorphine Scr Not Detected (Not Detect); Cannabinoid Screen Urine POSITIVE (Not Detect); Cocaine Screen Urine Not Detected (Not Detect); Fentanyl, urine Not Detected (Not Detect); Methadone Screen, Urine Not Detected (Not Detect); Opiate Screen Urine Not Detected (Not Detect); Oxycodone Screen Urine Not Detected (Not Detect); Phencyclidine Screen Urine Not Detected (Not Detect)
[2024-04-17 07:10] LABS: Alanine Aminotransferase 43 U/L (0-40); Albumin Level 3.9 g/dL (3.5-5.0); Alkaline Phosphatase 87 U/L (39-117); Anion Gap 11 (12-20); Aspartate Amino Transferase 57 U/L (5-37); Bilirubin Total 0.4 mg/dL (0.0-1.0); Blood Urea Nitrogen 19 mg/dL (9-16); Calcium 8.6 mg/dL (8.4-10.2); Carbon Dioxide 26 mmol/L (22-29); Chloride 108 mmol/L (96-108); Creatinine Clr Calc Pharmacy 110.9; Estimated Glomerular Filt Rate > 60; Glucose Random 131 mg/dL (60-115); Potassium 3.9 mmol/L (3.3-5.1); Sodium 141 mmol/L (135-145)
[2024-04-17] MEDS: Albuterol Sulfate (0.083%) 2.5 MG/3 ML VIAL.NEB INHALE ×4 (07:39→18:51)
[2024-04-17] MEDS: Sertraline HCL 25 MG TABLET PO (07:54)
[2024-04-17] MEDS: methylPREDNISolone Sod Succ 40 MG/ML VIAL IVPUSH ×2 (07:54→20:38)
[2024-04-17] MEDS: 0.9 % Sodium Chloride Flush 3 ML SYRINGE IVFLUSH ×3 (07:55→20:39)
--- NOTE | 2024-04-17 08:46 | HO.PM.IMPN ---
Subjective Subjective Date of Service: 04/17/24 Interval History: Follow-up on COPD exacerbation, bronchitis. Patient is feeling better oxygenation is better. Physical Exam Vital Signs: Vital Signs: Last Vital Signs Temp 98.7 F 04/17/24 07:29 Pulse 73 04/17/24 07:39 Resp 17 04/17/24 07:39 BP 146/81 H 04/17/24 07:29 Pulse Ox 92 04/17/24 07:29 O2 Del Method Nasal Cannula 04/17/24 07:29 O2 Flow Rate 2 04/17/24 07:29 FiO2 30 04/16/24 11:29 BMI result Body Mass Index 29.7 General: AO X 3, no acute distress Resp: CTA bilateral CVS: S1,S2,RRR GI: +BS, NT, no distention Skin: No rash Neuro: motor grossly intact Psych: appropriate affect Objective Data Active Medications Acetaminophen (Acetaminophen 325 Mg Tablet) 650 mg PO Q6H PRN PRN Reason: Pain, Mild (Pain Scale 1-3), fever or headache Albuterol Sulfate (Albuterol Sulfate (0.083%) 2.5 Mg/3 Ml Vial.Neb) 2.5 mg INHALE RQ4H WHILE AWAKE [facility] Last Admin: 04/17/24 07:39 Dose: 2.5 mg Documented By: HAI Albuterol Sulfate (Albuterol Sulfate (0.083%) 2.5 Mg/3 Ml Vial.Neb) 2.5 mg INHALE Q2H PRN PRN Reason: Shortness of Breath/Wheezing Aripiprazole (Aripiprazole 5 Mg Tablet) 5 mg PO BEDTIME [facility] Last Admin: 04/16/24 20:02 Dose: 5 mg Documented By: AZAR Calcium Carbonate (Calcium Carbonate 750 Mg Tab.Chew) 750 mg PO Q4H PRN PRN Reason: Heartburn Enoxaparin Sodium (Enoxaparin Sodium 40 Mg/0.4 Ml Syringe) 40 mg SUBCUT DAILY [facility] Last Admin: 04/17/24 08:13 Dose: Not Given Documented By: PORFIRIO Non-Admin Reason: Patient Refused Hydroxyzine HCl (Hydroxyzine Hcl 50 Mg Tablet) 50 mg PO BID PRN PRN Reason: Anxiety or Insomnia Magnesium Hydroxide (Milk Of Magnesia 30 Ml Oral.Susp) 30 ml PO DAILY PRN PRN Reason: Constipation Melatonin (Melatonin 3 Mg Tablet) 6 mg PO BEDTIME PRN PRN Reason: Insomnia Methylprednisolone Sodium Succinate (Methylprednisolone Sod Succ 40 Mg/Ml Vial) 40 mg IVPUSH BID [facility] Last Admin: 04/17/24 07:54 Dose: 40 mg Documented By: PORFIRIO Sertraline HCl (Sertraline Hcl 25 Mg Tablet) 25 mg PO DAILY [facility] Last Admin: 04/17/24 07:54 Dose: 25 mg Documented By: PORFIRIO Sodium Chloride (0.9 % Sodium Chloride Flush 3 Ml Syringe) 3 ml IVFLUSH QSHIFT [facility] Last Admin: 04/17/24 07:55 Dose: 3 ml Documented By: PORFIRIO Labs 04/16/24 10:52 04/17/24 05:46 Labs: Laboratory Results - last 24 hr 04/16/24 04/16/24 04/16/24 10:51 10:52 10:57 MCV 87.8 MCH 30.6 MCHC 34.8 RDW 12.8 Plt Count 252 MPV 9.8 Immature Gran % (Auto) 0.4 Neut % (Auto) 80.6 H Lymph % (Auto) 6.2 L [place] % (Auto) 12.7 H Eos % (Auto) 0.0 Baso % (Auto) 0.1 Lymph # (Auto) 0.7 L [place] # (Auto) 1.4 H Eos # (Auto) 0.0 Baso # (Auto) 0.0 Abs Immat Gran (auto) 0.04 H Absolute Neuts (auto) 8.6 H Absolute Nucleated RBC 0.000 Nucleated RBC % (auto) 0.0 Hold Purple Top APTT 29.9 VBG pH 7.46 H VBG pCO2 37 VBG pO2 226 VBG HCO3 26 VBG O2 Saturation 99.0 VBG Base Excess 3.0 Anion Gap 12 Estim Creat Clear Calc 96.7 Estimated GFR > 60 Random Glucose 120 H Lactic Acid 1.2 Calcium 8.8 Total Bilirubin 0.6 AST 82 H ALT 47 H Alkaline Phosphatase 91 B-Natriuretic Peptide 31 Total Protein 8.1 H Albumin 4.3 Lipase 20 TSH 0.65 Urine Color Urine Appearance Urine pH Ur Specific [place] Urine Protein Urine Glucose (UA) Urine Ketones Urine Blood Urine Nitrite Ur Leukocyte Esterase Urine RBC Urine WBC Ur Squamous Epith Cells Urine Bacteria Hyaline Casts Urine Opiates Screen Ur Buprenorphine Scrn Ur Oxycodone Screen Urine Methadone Screen Urine Fentanyl Screen Ur Barbiturates Screen Ur Phencyclidine Scrn Ur Amphetamines Screen U Benzodiazepines Scrn Urine Cocaine Screen U Marijuana (THC) Screen Ethyl Alcohol < 10 Influenza Type A (PCR) Influenza Type B (PCR) RSV RNA Qual (PCR) SARS-CoV-2 RNA (RT-PCR) 04/16/24 04/17/24 04/17/24 14:12 03:50 05:46 MCV MCH MCHC RDW Plt Count MPV Immature Gran % (Auto) Neut % (Auto) Lymph % (Auto) [place] % (Auto) Eos % (Auto) Baso % (Auto) Lymph # (Auto) [place] # (Auto) Eos # (Auto) Baso # (Auto) Abs Immat Gran (auto) Absolute Neuts (auto) Absolute Nucleated RBC Nucleated RBC % (auto) Hold Purple Top SEE NOTE APTT VBG pH VBG pCO2 VBG pO2 VBG HCO3 VBG O2 Saturation VBG Base Excess Anion Gap 11 L Estim Creat Clear Calc 110.9 Estimated GFR > 60 Random Glucose 131 H Lactic Acid Calcium 8.6 Total Bilirubin 0.4 AST 57 H ALT 43 H Alkaline Phosphatase 87 B-Natriuretic Peptide Total Protein 7.0 Albumin 3.9 Lipase TSH Urine Color Yellow Urine Appearance Clear Urine pH 5.5 Ur Specific [place] >= 1.030 H Urine Protein 30 (1+) H Urine Glucose (UA) Negative Urine Ketones Trace Urine Blood Moderate (2+) H Urine Nitrite Negative Ur Leukocyte Esterase Negative Urine RBC 6-10 H Urine WBC 0-5 Ur Squamous Epith Cells 0-2 Urine Bacteria None Seen Hyaline Casts 0-2 Urine Opiates Screen Not Detected Ur Buprenorphine Scrn Not Detected Ur Oxycodone Screen Not Detected Urine Methadone Screen Not Detected Urine Fentanyl Screen Not Detected Ur Barbiturates Screen Not Detected Ur Phencyclidine Scrn Not Detected Ur Amphetamines Screen Not Detected U Benzodiazepines Scrn Not Detected Urine Cocaine Screen Not Detected U Marijuana (THC) Screen POSITIVE H Ethyl Alcohol Influenza Type A (PCR) NEGATIVE Influenza Type B (PCR) NEGATIVE RSV RNA Qual (PCR) POSITIVE A SARS-CoV-2 RNA (RT-PCR) NEGATIVE Assessment and Plan (1) Bronchitis: Status: Acute (2) Asthma with exacerbation: Status: Acute (3) COPD exacerbation: Status: Acute Plan 59/m smoker here with acute respiratory failure hypoxia in setting RSV infection COPD exacerbtion d/t RSV with hypoxia -IV steroid -Bronchodilators -ceftin for bronchitis -symptomatic treatment -O2 PRN, goal of 92% or better, wean off HTN--not on meds Tobacco use -cessation discussed -NRT Mood disorder--continue home meds DVT prophylaxis: lovenox full code need for managmen of acute hypoxic resp failure d/t RSV, needing Oxygen for hypoxia. Quality Stroke Does the patient have a stroke diagnosis?: No VTE Prior VTE?: No VTE Risk Level:: Medical - moderate - high VTE Device Contraindication: Treatment Not Indicated VTE Drug Contraindication: N/A - Med Ordered
[2024-04-17] MEDS: cefuroxime axetiL 500 MG TABLET PO ×2 (09:18→20:38)
--- NOTE | 2024-04-17 11:45 | MHC.CM.PN ---
IMM DELIVERED. PATIENT LIVES IN A TRAILER ALONE. FUNCTIONALLY INDEPENDENT. DENIES USE OF DME OR SERVICES. REPORTS HE MOVED HERE FROM [place] ~8 MONTHS AGO. HE HAS A PCP IN [place], BUT IS LOOKING TO ESTABLISH CARE W/ A PCP IN THIS AREA. BROCHURE PROVIDED. NO HCP. CM PROVIDED EDUCATION AND OFFERED ASSISTANCE. PATIENT DECLINED. DP: GOAL IS HOME SELF CARE. WILL NEED [facility] TRANSPORT. CM WILL CONTINUE TO FOLLOW.
[2024-04-17] MEDS: ARIPiprazole 5 MG TABLET PO (20:38)
[2024-04-18 03:48] VITALS: BP 143/77; PULSE 57; RESP 18; TEMP 36.5; O2SAT 92
[2024-04-18 07:36] VITALS: BP 167/90; PULSE 70; RESP 18; TEMP 36.7; O2SAT 90
[2024-04-18] MEDS: Albuterol Sulfate (0.083%) 2.5 MG/3 ML VIAL.NEB INHALE ×2 (08:21→11:15)
[2024-04-18 08:24] VITALS: PULSE 72; RESP 16
[2024-04-18] MEDS: 0.9 % Sodium Chloride Flush 3 ML SYRINGE IVFLUSH (08:32)
[2024-04-18] MEDS: cefuroxime axetiL 500 MG TABLET PO (08:32)
[2024-04-18] MEDS: Sertraline HCL 25 MG TABLET PO (08:32)
[2024-04-18] MEDS: methylPREDNISolone Sod Succ 40 MG/ML VIAL IVPUSH (08:32)
[2024-04-18 11:15] VITALS: PULSE 70; RESP 16; O2SAT 92
--- NOTE | 2024-04-18 11:32 | P.DS_ITS ---
DS: Providers Provider Date of Service: 04/18/24 Date of admission: 04/16/24 17:21 Date of discharge: 04/18/24 Primary care physician: None Physician Attending physician on discharge: Del Rodriguez Discharging clinician: Nohemy Pineda DS: Diagnosis Discharge Diagnosis (1) Bronchitis: (2) Asthma with exacerbation: Status: Acute (3) COPD exacerbation: Status: Acute DS: Summary Hospital Course Hospital Course: From H&P on the day of admission 59-year-old male with a history of asthma, HTN, subarachnoid hemorrhage, and tobacco use disorder who was seen in the ED on 04/15 for shortness of breath and exacerbation of COPD. Admission was advised, but he left AMA to care for his dog. He was discharged with Ceftin, prednisone, and inhalers. His symptoms have since worsened, and en route to the ED, he was placed on BiPAP by EMS for an O2 saturation of 89% on room air. In the ED, he was initially put on CPAP, later changed to BiPAP. COPD exacerbtion d/t RSV with hypoxia. Treated with IV steroids and bronchodilator therapy. Breathing has gradually improved and he is able to be weaned off of supplemental oxygen. He is able to ambulate in his room with no shortness a breath. He is eager to return home and care for his dog who has been alone. He does not yet have PCP in this area and was given resources to obtain one. He will be discharged to complete course of oral steroids. Recommended to return to the emergency department with any new or worsening symptoms. Smoking cessation has been advised. he denies formal diagnosis of COPD but presumed due to long time history of smoking. Recommend outpatient PFTs when PCP is obtained for formal diagnosis. Time Attestation Discharge Coordination Time (in mins): 36 Quality: Safe Use of Opioids Does Pt have an Active Cancer Diagnosis on the Problem List?: No Quality: Stroke Does the patient have a stroke diagnosis?: No Physical Exam Vital Signs: Vital Signs: Last Vital Signs Temp 98.0 F 04/18/24 07:36 Pulse 70 04/18/24 11:15 Resp 16 04/18/24 11:15 BP 167/90 H 04/18/24 07:36 Pulse Ox 90 L 04/18/24 07:36 O2 Del Method Room Air 04/18/24 07:36 O2 Flow Rate 2 04/17/24 07:29 FiO2 30 04/16/24 11:29 BMI result Body Mass Index 29.7 Const: General: cooperative, comfortable, no acute distress, alert and awake Nutritional Appearance: overweight Orientation/consciousness: patient oriented x3 Resp: Other: scattered wheeze Effort & Inspection: normal respiratory effort, able to speak in complete sentences, no respiratory distress and no use of accessory muscles Cardio: Rate: regular rate GI: Inspection: No distended Palpation (GI): Soft to palpation and nontender Neuro: General: patient oriented x3, moves all extremities and CN's II-XI intact bilaterally DS: Data Data Completed and Pending Labs on day of discharge: Preliminary micro results at discharge 04/16/24 10:51 Blood Culture - Preliminary Blood - Venous No growth after 24 hours. 04/16/24 10:50 Blood Culture - Preliminary Blood - Venous No growth after 24 hours. Discharge Plan Discharge Anticipated Discharge Date/Time: 04/18/24 11:35 Patient Disposition: Home, Self-Care Discharge Diagnosis: RSV infection Referrals: Physician,None [Primary Care Provider] - 1 Week Discharge Medications: New prednisone 20 mg tablet 40 mg PO DAILY 5 Days Qty: 10 0RF Continued hydroxyzine pamoate 50 mg capsule 50 mg BID PRN (Reason: Anxiety or Insomnia) sertraline 25 mg tablet 25 mg PO DAILY aripiprazole 5 mg tablet 5 mg BEDTIME albuterol sulfate 90 mcg/actuation HFA aerosol inhaler 2 puff inhalation Q4-6H PRN (Reason: shortness of breath or wheezing) Qty: 8.5 1RF Discharge Orders: Discharge Order (Routine); Ordered 04/18/24 Ordered By: Nohemy Pineda Activity on Discharge: As tolerated Stand Alone Forms: Patient Portal Discharge page Print Language: Filipino Care Plan Goals: see below Health Concerns: RSV infection with hypoxia Plan of Treatment: Find new PCP in the area and call to schedule appointment Use albuterol as needed for shortness of breath Complete course of steroids as prescribed Return to the ED with new or worsening symptoms Assessment: See discharge summary
--- NOTE | 2024-04-18 11:48 | MHC.CM.PN ---
Patient medically cleared for dc home self care via [facility]ft.
--- NOTE | 2024-05-03 18:06 | P.CDIM_ITS ---
PROVIDER RESPONSE TEXT: To clarify, the appropriate diagnosis supported by the clinical indicators: No Acute Bronchitis QUERY TEXT: PHYSICIAN'S DOCUMENTATION REQUEST Date of Query: 04/30/2024 07:21 AM EST Patient Name: Jose Ruth Admit Date: 04/16/2024 Dear Nohemy GRAHAM, A review of the medical record indicates additional documentation may be needed. Please review below and update the documentation accordingly. Clinical Indicators: Per H&P 04/16/24: -IV steroid -Bronchodilators -Doxycyline for bronchitis -symptomatic treatment -O2 PRN, goal of 92% or better Per Hospitalist progress note 04/17/24: Bronchitis acute hypoxic respiratory failure d/t RSV, needing Oxygen for hypoxia Please clarify the following to accurately represent the patient's respiratory status: Acute Bronchitis No Acute Bronchitis Other (explain) Clinically unable to determine (explain) Thank you, Karena Calderon RN Use of terms such as suspected, likely, concern for, or probable (associated with a specific diagnosi s that is being evaluated, monitored, or treated as if it exists) are acceptable and can be coded in the inpatient se tting, when documented at the time of discharge. Please use your independent medical judgment in providing your response. THIS QUERY IS PART OF THE PERMANENT MEDICAL RECORD
== END 2024-04-18 12:09 | disposition home or self-care (01) | DRG 190 ==
LOC: HO.ED 17:32 → HO.EDOVER 17:37 → HO.S3 18:18
PROVIDERS: Admitting Provider Internal Medicine; Emergency Provider Emergency Medicine Emergency Medical Services; Visit Provider Physician Assistant Medical
DX: J44.1 Chronic obstructive pulmonary disease with (acute) exacerbation (principal); J96.01 Acute respiratory failure with hypoxia; F39 Unspecified mood [affective] disorder; I10 Essential (primary) hypertension; B97.4 Respiratory syncytial virus as the cause of diseases classified elsewhere; F17.210 Nicotine dependence, cigarettes, uncomplicated; Z71.6 Tobacco abuse counseling; Z20.822 Contact with and (suspected) exposure to COVID-19; Z79.899 Other long term (current) drug therapy
CPT/HCPCS: 0241U; 36415; 70450; 71045; 80048; 80053; 80076; 80307; 81001; 81003; 82803; 83605; 83690; 83880; 84443; 85025; 85730; 87040; 87502; 87635; 93005; 94640; 99285; J0456; J0696; J2919; J3475

== ENCOUNTER → 2024-04-16 10:47 | Outpatient (BNV) | payer MEDICARE, MEDICAID, SELFPAY | PROVIDERS: Admitting Provider Internal Medicine; Emergency Provider Emergency Medicine Emergency Medical Services; Visit Provider Internal Medicine | DX: R06.00 Dyspnea, unspecified (principal) | CPT/HCPCS: 93010 ==

== ENCOUNTER → 2024-04-16 17:21 | Outpatient (BNV) | payer MEDICARE, MEDICAID, SELFPAY | PROVIDERS: Admitting Provider Internal Medicine; Emergency Provider Emergency Medicine Emergency Medical Services; Visit Provider Internal Medicine | DX: J40 Bronchitis, not specified as acute or chronic (principal); J45.51 Severe persistent asthma with (acute) exacerbation; J44.1 Chronic obstructive pulmonary disease with (acute) exacerbation | CPT/HCPCS: 99239 ==

== ENCOUNTER 2025-02-17 13:54 | Emergency (ER) | payer MEDICARE, MEDICAID, SELFPAY ==
--- OUTSIDE RECORDS SUMMARY | 2024-11-28 05:30 | XMS_ITS ---
Author Organization [facility] Address [address] [facility] [address] [place] [address] Care Team Providers Care Assembler Crimper Name Role Phone DAVID MURRAYD Primary Care Provider Rick Echevarria Unavailable [phone] REASON FOR VISIT Medicare Wellness Medications Medication [...] Active Encounters Encounter Location Date Provider Diagnosis [facility] [address] [facility] [address] [place] [address] 11/28/2024 Rick Echevarria HTN (hypertension), benign I10 [...] * Jose FOXDOB: 5 (59 yo M)Acc No.[id number]:11/28/2024 Progress Note Patient: T ERRIO, Embudo Provider: Verenice Echevarria, :1965 A ge:59 Y S ex:Male Date:11/28/2024 Phone: Address:[address], [address], [place], [place] Pcp:SHAQ MURRAY Subjective: * Chief Complaints: * 1 . Medicare Wellness. * HPI: i nternal medicine: This is a 59-year-old gentleman with history of right internal carotid artery aneurysm, subarachnoid hemorrhage admitted in November 2023 to [facility] status post repair, hypertension, anxiety depression and bipolar disorder panic attack, TBI at the age of [age] years old I have reviewed the records from [facility] says that patient had a CAT [...] than 1-2 years as he relocated from [place] He has history of anxiety and depression and is followed by a psychiatrist at once in [place] Dr. Wilfrid Burgess takes sertraline and Abilify. [...] MALE GENITOURINARY: _ _. PODIATRIC: N ormal. Clinical Therapist _ ____. Assessment: * Assessment: 1. H TN (hypertension), benign - I10 2 . E ncounter for general adult medical examination without abnormal findings - Z00.00 Plan: * Treatment: * Procedure Codes: G 0439 ANNUAL WELLNESS VST; PPS SUBSQT VST * Preventive Medicine: YOUR PREVENTIVE WELLNESS PLAN: B KS, Height, and Weight: The Recommended Frequency is: [...] * Electronic signature of Cleopatra Echevarria on 02/17/2025 at 08:50 PM EDT Sign off status: Pending * Provider: Verenice Echevarria, Date: 0 11/28/2024 Generated for Hernan conteh/Marcio/Robert on: 08:50 PM EDT History and Physical Notes * HPI (History of Present Illness) Category Sub-Category Detail Notes Category Not es Medicare Annual Visit Type of Visit -: Subsequ ent Annual Wellness Visit Language or Communication barrier addressed -: Y es Health Risk Assessment DEMOGRAPHICS: - - How old are you?: __ - How would you best describe your [facility]?: __ - How would you describe [...] subarachnoid hemorrhage admitted in November 2023 to [facility] status post repair, hypertension, anxiety depression and bipolar disorder panic attack, TBI at the age of [age] years old I have reviewed the records from [facility] says that patient had a CAT [...] than 1-2 years as he relocated from [place] He has history of anxiety and depression and is followed by a psychiatrist at once in [place] Dr. Wilfrid Burgess takes sertraline and Abilify. [...] versation But forgetful. OROPHARYNX Normal SINUSES Normal Clinical Therapist
--- NOTE | ~2025-02-17 | XR_ITS ---
EXAMINATION: XR FINGERS RIGHT HISTORY: trauma COMPARISON: There are no prior studies available for comparison. FINDINGS: Three views of the right index finger are submitted. There is soft tissue injury of the distal tuft. Osseous mineralization is normal. There is no fracture or dislocation. The joint spaces are maintained. XR/XR finger RT min 2V IMPRESSION: Soft tissue injury of the distal tuft. No evidence of fracture of the right index finger. Electronically signed by: Rubin Bright MD 02/17/2025 02:46 PM EDT
[2025-02-17 14:00] VITALS: BP 137/82; PULSE 90; RESP 16; TEMP 37; O2SAT 96; BMI 30.9
--- NOTE | 2025-02-17 14:09 | ED.GENADULT ---
HPI - General Adult General Chief complaint: Wound/Laceration Stated complaint: ? finger tip lac Related Data Home Medications ?Medication ?Instructions ?Recorded ?Confirmed aripiprazole 5 mg tablet 5 mg BEDTIME 04/16/24 04/16/24 hydroxyzine pamoate 50 mg capsule 50 mg BID PRN Anxiety or Insomnia 04/16/24 04/16/24 sertraline 25 mg tablet 25 mg PO DAILY 04/16/24 04/16/24 Previous Rx's ?Medication ?Instructions ?Recorded albuterol sulfate 90 mcg/actuation 2 puff inhalation Q4-6H PRN 04/18/24 aerosol inhaler shortness of breath or wheezing #8.5 grams prednisone 20 mg tablet 40 mg (2 x 20 mg) PO DAILY 5 days 04/18/24 #10 tabs Allergies Allergy/AdvReac Type Severity Reaction Status Date / Time No Known Allergies Allergy Verified 02/17/25 14:07 [facility] Past Medical History Medical History Asthma Subarachnoid hemorrhage Social History Social History Household Members: None Housing: Other Housing Other:: trailer Do you presently have visiting nurse or other home services: No Patient Tobacco Use Status: Current everyday Tobacco user Tobacco use type: Cigarette Cigarettes Per Day: 1 Second Hand Smoke Exposure: No service: No Physical Exam ED Vital Signs: Vital Signs - 24 hr 02/17/25 14:00 Temperature 98.6 F Pulse Rate 90 Respiratory Rate 16 Blood Pressure 137/82 Pulse Oximetry 96 Oxygen Delivery Method Room Air BMI result Body Mass Index 30.9 Course Course Course Narrative: RME, this is a rapid medical exam performed by Jono Davis please refer to primary provider for complete H&P- 59-year-old male presents for evaluation of a right index finger laceration. 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 Plan for x-ray to rule out osseous injury, tetanus will be updated Discharge Plan Discharge Prescriptions: No Action hydroxyzine pamoate 50 mg capsule 50 mg BID PRN (Reason: Anxiety or Insomnia) sertraline 25 mg tablet 25 mg PO DAILY aripiprazole 5 mg tablet 5 mg BEDTIME prednisone 20 mg tablet 40 mg PO DAILY 5 Days Qty: 10 0RF albuterol sulfate 90 mcg/actuation HFA aerosol inhaler 2 puff inhalation Q4-6H PRN (Reason: shortness of breath or wheezing) Qty: 8.5 1RF Print Language: Kiswahili
[2025-02-17] MEDS: Diphth,Pertus(ACell),Tet Adult 0.5 ML SYRINGE IM (17:43)
[2025-02-17] MEDS: Lidocaine HCl 1 % 20 ML VIAL 5 ML INFILTRATI (17:43)
--- NOTE | 2025-02-17 18:12 | ED_ITS ---
HPI - General Adult General Chief complaint: Wound/Laceration Stated complaint: ? finger tip lac Time Seen by Provider: 02/17/25 17:23 Source: patient Mode of arrival: ambulatory Limitations: no limitations History of Present Illness ED Provider: Dr. Toribio HPI narrative: 59-year-old male presented hospital today for finger laceration. 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 He sustained injury to the tip of the finger. Range of motion is intact. Related Data Home Medications ?Medication ?Instructions ?Recorded ?Confirmed aripiprazole 5 mg tablet 5 mg BEDTIME 04/16/24 hydroxyzine pamoate 50 mg capsule 50 mg BID PRN Anxiet y or Insomnia 04/16/24 sertraline 25 mg tablet 25 mg PO DAILY 04/16/2403/31 Previous Rx's ?Medication ?Instructions ?Recorded albuterol sulfate 90 mcg/actuation 2 puff inhalation Q 4-6H PRN 04/18/24 aerosol inhaler shortness of breath or wheez ing #8.5 grams prednisone 20 mg tablet 40 mg (2 x 20 mg) PO DAILY 5 days 04/18/24 #10 tabs acetaminophen 500 mg tablet 1,000 mg (2 x 500 mg) PO Q 6H PRN 02/17/25 (Tylenol Extra Strength) pain 10 days #60 tabs ibuprofen 400 mg tablet 400 mg PO Q6H PRN pain 10 da ys #60 02/17/25 tabs Allergies Allergy/AdvReac Type Severity Reaction Status Date / Time No Known Allergies Allergy Verified 02/17/25 14:07 Review of Systems Review of Systems: Pertinent review of systems as mentioned in HPI. All other system otherwise negative. [facility] Past Medical History [facility] Narrative: COPD Medical History Asthma Subarachnoid hemorrhage Social History Social History Household Members: None Housing: Other Housing Other:: trailer Do you presently have visiting nurse or other home services: No Patient Tobacco Use Status: Current everyday Tobacco user Tobacco use type: Cigarette Cigarettes Per Day: 1 Second Hand Smoke Exposure: No Advance Directives: No Advance Directives Information Provided: Yes service: No Physical Exam ED Exam Exam: General: Pleasant, no distress, interacting appropriately Head: Normacephalic, atraumatic Extremities: Laceration of the distal tip of his finger. Tendon is intact. CMS intact in the right upper extremity. Neurological: Awake and alert, no facial droop noted Skin: Warm and dry Psychiatric: Appropriate mood and thoughts Vital Signs: Vital Signs - 24 hr 02/17/25 14:00 Temperature 98.6 F Pulse Rate 90 Respiratory Rate 16 Blood Pressure 137/82 Pulse Oximetry 96 Oxygen Delivery Method Room Air BMI result Body Mass Index 30.9 Medications Administered Discontinued Medications Generic Name Dose Route Start Last Admin Trade Name Freq PRN Reason Stop Dose Admin Diphtheria/Tetanus/Acell Pertussis 0.5 ml 02/17/25 14:06 02/17/25 17:43 Diphth,Pertus(Acell),Tet Adult 0.5 Ml Syringe IM 02/17/25 14:07 0.5 ml .ONCE ONE Administration Lidocaine HCl 5 ml 02/17/25 17:23 02/17/25 17:43 Lidocaine Hcl 1 % 20 Ml Vial INFILTRATI 02/17/25 17:24 5 ml ONCE ONE Administration Medical Decision Making Medical Decision Making MDM Narrative: 59-year-old male presented hospital today for evaluation of finger laceration. X-ray did not show any signs of bony tissue. Finger laceration was repaired with 5 simple interrupted stitches. Approximated the laceration together. Finger block was performed via 1% lidocaine. This wound was approximated well. Patient tolerated procedure well. We will plan to discharge patient instruction to keep the wound clean and dry. Have him follow up in urgent care, primary care or return to the ER in 10-14 days for suture removal. Patient agrees and understands this plan. Ibuprofen and Tylenol prescribed for the patient for pain control. Differential Diagnosis Differential Diagnoses: The differential diagnosis associated with the presentation includes Finger laceration Independent Interpretation I performed an independent interpretation of an: Plain X-Ray Radiology Impression Discussion of test interpretation with radiology: I have reviewed the radiologist's reading. Prescription Management I considered prescription management with: Pain Medication Discharge Plan Discharge Clinical Impression: Laceration Patient Disposition: Home, Self-Care Additional Instructions: [address] 10-14 days for assessment for removal. Can come to walk in clinic here or urgent care vs primary care doctor. You may return to ED. Prescriptions: New ibuprofen 400 mg tablet 400 mg PO Q6H PRN (Reason: pain) 10 Days Qty: 60 0RF acetaminophen [Tylenol Extra Strength] 500 mg tablet 1,000 mg PO Q6H PRN (Reason: pain) 10 Days Qty: 60 0RF No Action hydroxyzine pamoate 50 mg capsule 50 mg BID PRN (Reason: Anxiety or Insomnia) sertraline 25 mg tablet 25 mg PO DAILY aripiprazole 5 mg tablet 5 mg BEDTIME prednisone 20 mg tablet 40 mg PO DAILY 5 Days Qty: 10 0RF albuterol sulfate 90 mcg/actuation HFA aerosol inhaler 2 puff inhalation Q4-6H PRN (Reason: shortness of breath or wheezing) Qty: 8.5 1RF Referrals: [facility] [place] Group] Print Language: St Helen[place]
[2025-02-17 18:19] VITALS: BP 137/82; PULSE 90; RESP 16; TEMP 37; O2SAT 96
--- OUTSIDE RECORDS SUMMARY | 2025-02-17 20:50 | XMS_ITS | Patient Health Record ---
Author Organization [facility] Address [address] [place] [address] Care Team Providers Care Counselor Supervisor Name Role Phone SHAQ MURRAY Primary Care Provider [phone] JhonnyjanellRick Unavailable [phone] Allergies No Known Allergies Reason For Referral No Information Medications Medication SIG (Take, Route, Frequency, Duration) Notes Start Date End Date Status Albuterol Sulfate HFA 108 (90 Base) MCG/ACT 1 puff as needed Inhalation every 4 hrs; Duration: 30 days 01/22/2025 Active amLODIPine Besylate 10 MG 1 tablet Orall y Once a day; Duration: 30 days 10/01/2024 Active Plavix 75 MG 1 tablet Orally Once a day; Duration: 30 days 10/01/2024 Active amLODIPine Besylate 5 MG 1 tablet Orally Once a day; Duration: 90 days Active Sertraline HCl 25 MG 1 tablet Orally Onc e a day Active ARIPiprazole 10 MG 1 tablet Orally Once a day Active Nicorette 4 MG 1 piece chew for 30 minutes as needed Mouth/Throat every 8 hrs; Duration: 30 days 10/01/2024 Active Immunizations Vaccine Route Administration Date Status Comme nts TDAP Unknown 11/13/2019 Administered Problems Problem Type SNOMED Code ICD Code Onset Dates Problem Status W/U Status Risk Notes Problem Residual cognitive deficit as late effect of cerebrovascular accident (635344661) 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) Active confirmed Problem Essential hypertension (11936316) HTN (hypertension), benign (I10) Active confirmed Vital Signs Heart Rate 85 /min 10/01/2024 Temperature 98.7 degrees Fahrenheit 10/01/2024 Blood pressure diastolic 90 mm Hg 10/01/2024 Oximetry 99 % 10/01/2024 Height 5'11'' in 10/01/2024 Blood pressure systolic 150 mm Hg 10/01/2024 Weight 223.2 lbs 10/01/2024 BMI 31.13 kg/m2 10/01/2024 Encounters Encounter Location Date Provider Diagnosis [address] [place] [address] 11/28/2024 Rick Echevarria HTN (hypertension), benign I10 and Encounter for general adult medical examination without abnormal findings Z00.[address] [place] [address] 10/01/2024 Rick Echevarria HTN (hypertension), benign I10 ; Hyperlipidemia, mixed E78.2 ; Tobacco dependence F17.200 and 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 Hypertension uncontrolled blood pressure today was 150/90 patient has not been taking any of medication. He does not remember what medication he was taking reviewed discharge paperwork from November 2023 patient is supposed to be on amlodipine 10 mg daily we will resume medications check a basic metabolic panel and albumin creatinine ratio. We will bring patient back in 2 weeks for blood pressure check Hyperlipidemia patient was supposed to be on simvastatin 50 mg for 30 days and then was supposed to be titrated down to 40 mg daily for 3 weeks and then stopped patient is not taking any medications we would not be restart simvastatin will check the lipid profile first subarachnoid hemorrhage and cerebral vaso spasm, right internal carotid artery aneurysm with rupture status post stent placement by Dr Sana Khalilhe is supposed to be taking Plavix indefinitely again we will send a new prescription as patient has not been taking any of medications Tobacco abuse and dependence, discuss about smoking cessation. Will provide nicotine replacement gum. Anxiety and depression he sees a psychiatrist and is on Abilify 10 mg daily and sertraline 25 mg daily which will be continued screening blood work slip has been given today. 11/28/2024 HTN (hypertension), benign (ICD-10 - I10) 10/01/2024 Hyperlipidemia, mixed (ICD-10 - E78.2) 59-year-old gentleman with history of subarachnoid hemorrhage underlying right internal carotid artery aneurysm history of TBI, cerebral vasospasm, status post stent placement is here for a new PCP visit. Hypertension uncontrolled blood pressure today was 150/90 patient has not been taking any of medication. He does not remember what medication he was taking reviewed discharge paperwork from November 2023 patient is supposed to be on amlodipine 10 mg daily we will resume medications check a basic metabolic panel and albumin creatinine ratio. We will bring patient back in 2 weeks for blood pressure check Hyperlipidemia patient was supposed to be on simvastatin 50 mg for 30 days and then was supposed to be titrated down to 40 mg daily for 3 weeks and then stopped patient is not taking any medications we would not be restart simvastatin will check the lipid profile first subarachnoid hemorrhage and cerebral vaso spasm, right internal carotid artery aneurysm with rupture status post stent placement by Dr Sana Elizabethstatehe is supposed to be taking Plavix indefinitely again we will send a new prescription as patient has not been taking any of medications Tobacco abuse and dependence, discuss about smoking cessation. Will provide nicotine replacement gum. Anxiety and depression he sees a psychiatrist and is on Abilify 10 mg daily and sertraline 25 mg daily which will be continued screening blood work slip has been given today. 11/28/2024 Encounter for general adult medical examination without abnormal findings (ICD-10 - Z00.00) 10/01/2024 Tobacco dependence (ICD-10 - F17.200) 59-year-old gentleman with history of subarachnoid hemorrhage underlying right internal carotid artery aneurysm history of TBI, cerebral vasospasm, status post stent placement is here for a new PCP visit. Hypertension uncontrolled blood pressure today was 150/90 patient has not been taking any of medication. He does not remember what medication he was taking reviewed discharge paperwork from November 2023 patient is supposed to be on amlodipine 10 mg daily we will resume medications check a basic metabolic panel and albumin creatinine ratio. We will bring patient back in 2 weeks for blood pressure check Hyperlipidemia patient was supposed to be on simvastatin 50 mg for 30 days and then was supposed to be titrated down to 40 mg daily for 3 weeks and then stopped patient is not taking any medications we would not be restart simvastatin will check the lipid profile first subarachnoid hemorrhage and cerebral vaso spasm, right internal carotid artery aneurysm with rupture status post stent placement by Dr Sana Khalilhe is supposed to be taking Plavix indefinitely again we will send a new prescription as patient has not been taking any of medications Tobacco abuse and dependence, discuss about smoking cessation. Will provide nicotine replacement gum. Anxiety and depression he sees a psychiatrist and is on Abilify 10 mg daily and sertraline 25 mg daily which will be continued screening blood work slip has been given today. 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 Hypertension uncontrolled blood pressure today was 150/90 patient has not been taking any of medication. He does not remember what medication he was taking reviewed discharge paperwork from November 2023 patient is supposed to be on amlodipine 10 mg daily we will resume medications check a basic metabolic panel and albumin creatinine ratio. We will bring patient back in 2 weeks for blood pressure check Hyperlipidemia patient was supposed to be on simvastatin 50 mg for 30 days and then was supposed to be titrated down to 40 mg daily for 3 weeks and then stopped patient is not taking any medications we would not be restart simvastatin will check the lipid profile first subarachnoid hemorrhage and cerebral vaso spasm, right internal carotid artery aneurysm with rupture status post stent placement by Dr Sana Nassar is supposed to be taking Plavix indefinitely again we will send a new prescription as patient has not been taking any of medications Tobacco abuse and dependence, discuss about smoking cessation. Will provide nicotine replacement gum. Anxiety and depression he sees a psychiatrist and is on Abilify 10 mg daily and sertraline 25 mg daily which will be continued screening blood work slip has been given today. Plan Of Treatment Pending Test Test Name Order Date CBC with Diff, Platelet, [id number] 06/2024 Albumin/Creatinine Ratio,[id number] Lipid Panel With LDL/HDL Ratio-[id number] Comp. Metabolic Panel [phone] Insurance Providers Payer Name Payer Address Payer Phone Subscriber Number Group Number Insured Name Patient Relationship to Insured Coverage Start Date Coverage End Date Medicare [address] [place] [phone] [id number] ZoëJose mccauley Self - patient is the insured [facility] [employer] [facility] [address] [address] [place] [address] [id number] [employer] [place] Self - patient is the insured Medical (General) History Medical History History ICD Code hypertension Anxiety and depression Panic attacks Bipolar disorder Chronic kidney disease with baseline creatinine of 1.2 on the last admission at the hospital. Hyperlipidemia Subarachnoid hemorrhage Aneurysm of right internal carotid arter y Surgical History Surgery Date(Month/Year) subarachnoid hemorrhage stat us post stenting of the aneurysm of the right internal carotid artery history for acute diverticulitis status post colectomy 20 years ago
--- OUTSIDE RECORDS SUMMARY | 2025-02-17 20:50 | XMS_ITS | Patient Health Record ---
Author Organization [facility] [address] [place] [address] [address] Address [address] [place] [address] Care Team Providers Care Traffic Inspector Name Role Phone Yessenia Lugo MD, Alvaro Primary Care Provider Unav ailable Reason For Referral No Information Plan Of Treatment No Information Insurance Providers Payer Name Payer Address Payer Phone Subscriber Number Group Number Insured Name Patient Relationship to Insured Coverage Start Date Coverage End Date [employer] of [place] [address] [place] [phone] [id number] Jose Ruth Self - patient is the insured
== END 2025-02-17 18:20 | disposition home or self-care (01) ==
PROVIDERS: Emergency Provider Student in an Organized Health Care Education/Training Program; PCP Hospitalist
DX: S61.210A Laceration without foreign body of right index finger without damage to nail, initial encounter (principal); W26.0XXA Contact with knife, initial encounter; Y93.9 Activity, unspecified; Y92.9 Unspecified place or not applicable; Y99.8 Other external cause status; Z79.899 Other long term (current) drug therapy; Z23 Encounter for immunization
CPT/HCPCS: 12001; 73140; 90471; 90715; 99282; 99284; J2003

== ENCOUNTER → 2025-02-17 14:06 | Outpatient (BNV) | payer MEDICARE, MEDICAID, SELFPAY | PROVIDERS: Visit Provider Radiology Diagnostic Radiology | DX: S60.940A Unspecified superficial injury of right index finger, initial encounter (principal) | CPT/HCPCS: 73140 ==

== ENCOUNTER 2025-03-29 11:28 | Emergency (ER) | payer MEDICARE, MEDICAID, SELFPAY ==
--- OUTSIDE RECORDS SUMMARY | 2024-11-28 04:30 | XMS_ITS ---
Author Organization [facility] Address [address] [facility] [address] [place] [address] Care Team Providers Care Polysomnographic Tech Name Role Phone DAVID MURRAYD Primary Care Provider Rick Echevarria Unavailable [phone] REASON FOR VISIT Medicare Wellness Medications Medication SIG (Take, Route, Frequency, Duration) Notes Start Date End Date Status Plavix 75 MG 1 tablet Orally Once a day; Duration: 30 days 10/01/2024 Active amLODIPine Besylate 5 MG 1 tablet Orally Once a day; Duration: 90 days Active Sertraline HCl 25 MG 1 tablet Orally Once a day Active ARIPiprazole 10 MG 1 tablet Orally Once a day Active Nicorette 4 MG 1 piece chew for 30 minutes as needed Mouth/Throat every 8 hrs; Duration: 30 days 10/01/2024 Active amLODIPine Besylate 10 MG 1 tablet Orall y Once a day; Duration: 30 days 10/01/2024 Active Encounters Encounter Location Date Provider Diagnosis [facility] [address] [facility] [address] [place] [address] 11/28/2024 Rick Echevarria HTN (hypertension), benign I10 and Encounter for general adult medical examination without abnormal findings Z00.00 Assessments Encounter Date Diagnosis (ICD Code) Assessment Notes Treatment Notes Treatment Clinical Notes Section Notes 11/28/2024 HTN (hypertension), benign (ICD-10 - I10) 11/28/2024 Encounter for general adult medical examination without abnormal findings (ICD-10 - Z00.00) Plan Of Treatment Medication Medication Name Sig Start Date Stop Date Notes amLODIPine Besylate 5 MG 1 tablet Orally Once a day; Duration: 90 days Progress Notes * Jose FOXDOB: [birth year] (59 yo M)Acc No.[id number]:11/28/2024 Progress Note Patient: T ERRIO, [place] Provider: Verenice Echevarria, :1965 A ge:59 Y S ex:Male Date:11/28/2024 Phone: Address:[address], [address], [place], [place] Pcp:SHAQ MURRAY Subjective: * Chief Complaints: * 1 . Medicare Wellness. * HPI: i nternal medicine: This is a 59-year-old gentleman with history of right internal carotid artery aneurysm, subarachnoid hemorrhage admitted in November 2023 to [facility] status post repair, hypertension, anxiety depression and bipolar disorder panic attack, TBI at the age of [age] years old I have reviewed the records from [facility] says that patient had a CAT scan which showed subarachnoid hemorrhage in the prepontine cistern extended into the left sylvian fissure and the interior aspect of the third ventricle patient was seen by neurosurgery Dr. 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 patient was also fine at the time to have elevated creatinine of 1.2 with an unknown base and an uncontrolled blood pressure ranging in the 180s requiring nifedipine drip. After the basilar artery stent placement he was discharged on amlodipine 10 mg and also Plavix 75 mg daily along with simvastatin 40 mg daily. Patient is here today for a new PCP visit he does not remember his medications, he has not been taking amlodipine Plavix or statins.he has not seen a PCP for more than 1-2 years as he relocated from [place] He has history of anxiety and depression and is followed by a psychiatrist at once in [place] Dr. Wilfrid Burgess takes sertraline and Abilify. Patient continues to smoke 1 pack a day of cigarettes he sometimes smoked marijuana he does not drink any alcohol. He does not exercises. P atient Care Team: - N o Providers on Record. M edayleen Annual Visit: Type of Visit - S ubsequent Annual Wellness Visit Language or Communication barrier addressed - Y es Health Risk Assessment D EMOGRAPHICS - - How old are you? _ _ - How would you best describe your ethnicity??__ - How would you describe your marital status??__ - How would you describe your employment status? _ _ - How many children do you have? N one R ISK ASSESSMENT - - Do you currently use tobacco products? N o - Have you ever used tobacco products? N o - What type of tobacco do you use or have you used? _ _ - (If cigarette smoker) How long have you smoked? _ _ - (If cigarette smoker) How many cigarettes do you smoke per day? _ _ - How many alcoholic beverages (i.e. 1oz hard liquor, one glass of wine, one bottle of beer) do you drink daily, on average? N one - Have you ever felt the need to cut down on drinking? N o - Have people annoyed you with criticism of your drinking? N o - Do you or have you felt guilty for drinking? N o - Have you ever felt the need to drink first thing in the morning to steady your nerves or to get rid of a hangover? N o - How often do you exercise? N ever - How vigorously can you exercise? M inimally - How often do you use seatbelts? A lways - In the past month, how often have you had sex? _ _ - Do you have any significant difficulties or dysfunction during sex? N o, never - How many partners do you have? _ _ - How often do you experience pain with sex??Never - How often do you use condoms during sex??Always M ENTAL HEALTH ASSESSMENT - - In the past two weeks, how often have you felt depressed, down or hopeless? N ever - In the past month, how often have you felt anxious or stressed? N ever - What is your average level of daily stress??None - In the past two weeks, how often have you felt a lack of pleasure or interest in doing things? N ever - In the past two weeks, how often have you had difficulty falling asleep or episodes of sleeping too long? N ever - In the past two weeks, how often have you had a lack of energy? N ever - In the past two weeks, how often have you had feelings of being better off or thoughts of harming yourself? N ever - Have you ever attempted to harm yourself??No G ENERAL HEALTH/PAIN ASSESSMENT - - In the past month, how often did you experience pain? N ever - In the past month, how much has pain affected your ability to work? N ot at all - In the past month, how much has pain affected your ability to walk? N ot at all - In the past month, how much has pain affected your relationship with other people? N ot at all - On a scale of 1-10, how bad would you rate your average daily pain? N o pain - How would you describe the ease with which you can prepare your own food? V terrence easy - How would you describe the ease with which you can bathe or clean yourself? V terrence easy - How would you describe the ease with which you can dress yourself? V terrence easy - How hard is it to use the toilet by yourself? N ot hard at all - How would you describe the ease with which you can do your own shopping? V terrence easy - How would you describe the ease with which you can get around your house? V terrence easy - How would you describe your ability to pay your bills? V terrence good - How would you describe your ability to plan your daily and monthly budgets? V terrence good - How would you describe your ability to do routine housework? V terrence good H OME SAFETY/ASSISTANCE - - Do you feel like you are safe in your current home? Y es - How many times have you fallen in your home? N ever - How much would you need to change your living circumstances to feel safe? N ot at all - Do you feel that living somewhere else would be good for you? N o - How much help do you feel you need at home??None at all - How much does your family help with daily or routine chores? N ot at all Immunization Status addressed - Y es Depression Screening - N o Vision Screening - N o Hearing Screening - N o Fall Risk and Home Safety - N egative, no falls in the past year, no difficulty walking, or getting out of bed or chair M edication evaluation and reconcilliation performed Y es V ision screening recommended Y es L iterature offered to the patient Y es R eferrals p hysical therapy offered for gait balance and mobility evaluation, fall prevention home evauation offered, DEXA screening offered G et Up and Go Evaluation u nder 20 seconds Psychosocial Risks - N o overt psychosocial risks shown, observed, or mentioned Behavioral Risks - P atient seems very well adjusted and no behavorial issues noted Activities of daily living - N ot impaired Cognitive Screening - N o overt cognitive deficiency is apparent by direct observation * ROS: G eneral/Constitutional: Overall health G ood. C hange in appetite d enies.?Chills d enies. F ever d enies. N ight sweats d enies. S leep disturbance d enies. W eight gain d enies. W eight loss d enies. N eurologic: Patient denies b alance difficulty, difficulty speaking, dizziness. D ifficulty speaking d enies. D izziness d enies. G ait abnormality?denies. H eadache d enies. L oss of strength d enies. M nish loss d enies. S eizures d enies. T ingling/Numbness d enies . O phthalmologic: Blurred vision d enies. D ischarge d enies. D ry eye d enies. R ed eye d enies. E NT: Change in Voice D enies. C old Symptoms D enies.?Cough D enies. D izziness D enies. N irma Congestion D enies. O talgia?Denies. p ostnasal drip D enies. B locked ear d enies. N osebleed d enies. S noring d enies. C ardiovascular: Diaphoresis D enies. P edal Edema D enies. P ND (Paroxsymal nocturnal dyspnea) D enies. C hest pain d enies. D ifficulty laying flat d enies. D yspnea on exertion d enies. H eart murmur d enies. O rthopnea?denies. R espiratory: Asthma d enies. C ough d enies. S hortness of breath with exertion d enies. S putum production d enies. W heezing d enies. G astrointestinal: Change in bowel habits d enies. C onstipation d enies. D ecreased appetite d enies. D iarrhea d enies. H eartburn d enies. N ausea d enies. V omiting d enies. M usculoskeletal: tingling/numbness D enies. m yalgias D enies. J oint Swelling D enies. e xtremeties n ormal. A rthritis d enies. B ack problems d enies. C arpal tunnel d enies. J oint stiffness d enies. M uscle aches d enies. E ndocrine: Bowel Changes D enies. B reast Discharge D enies.?poor libido D enies. C old intolerance d enies. E xcessive sweating d enies.?Excessive thirst d enies. F requent urination d enies. T hyroid problems d enies. S kin: Bruising D enies. E czema d enies. H air changes d enies. R haritha d enies. S kin lesion(s) d enies. P sychiatric: Anxiety d enies. D epressed mood d enies. D ifficulty sleeping d enies. N ervous breakdown d enies. S ubstance abuse d enies.? U rology: abnormal menstrual bleeding d enies. b lood in urine?denies. b urning on urination d enies. d ifficulty urinating d enies. d ischarge d enies. d ysuria d enies. * Medical History: H ypertension, Anxiety and depression, Panic attacks, Bipolar disorder, Chronic kidney disease with baseline creatinine of 1.2 on the last admission at the hospital., Hyperlipidemia, Subarachnoid hemorrhage, Aneurysm of right internal carotid artery. * Surgical History: s ubarachnoid hemorrhage status post stenting of the aneurysm of the right internal carotid artery , history for acute diverticulitis status post colectomy 20 years ago . * Family History: Father was a diabetic. * Social History: h audelia is he smokes cigarettes1 pack a day for more than 35 years. He sometimes smokes marijuana. He does not drink any alcohol. he has 1 adult child He does not exercise at. * Medications: T aking Sertraline HCl 25 MG Tablet 1 tablet Orally Once a day , Taking ARIPiprazole 10 MG Tablet 1 tablet Orally Once a day , Taking Nicorette 4 MG Gum 1 piece chew for 30 minutes as needed Mouth/Throat every 8 hrs , Taking amLODIPine Besylate 10 MG Tablet 1 tablet Orally Once a day , Taking Plavix 75 MG Tablet 1 tablet Orally Once a day , Taking amLODIPine Besylate 5 MG Tablet 1 tablet Orally Once a day Objective: * Vitals: * Examination: G eneral Examination: GENERAL APPEARANCE: W ell developed, well nourished, in no acute distress. MUSCULOSKELETAL: N ormal. HEAD: N ormocephalic, atraumatic. EYES: P upils equal, round, reactive to light and accommodation, sclera non-icteric. EARS: N ormal. ORAL CAVITY: N ormal. THROAT: C lear. OROPHARYNX N ormal. SINUSES N ormal. NECK/THYROID: N faith supple, full range of motion, no cervical lymphadenopathy. SKIN: W arm and dry, no suspicious lesions. HEART: N ormal, no murmurs, rubs, gallops. LUNGS: N ormal, scattered wheezes throughout. BREASTS: _ _. ABDOMEN: S oft, nontender, nondistended, bowel sounds present, normal. EXTREMITIES: N ormal. PERIPHERAL PULSES: N ormal. NEUROLOGIC: N onfocal, appropriate m otor strength normal upper and lower extremities, sensory exam intact. Psychiatry N orma land clear conversation But forgetful.. FEMALE GENITOURINARY: _ _. MALE GENITOURINARY: _ _. PODIATRIC: N ormal. Pickle Sorter _ ____. Assessment: * Assessment: 1. H TN (hypertension), benign - I10 2 . E ncounter for general adult medical examination without abnormal findings - Z00.00 Plan: * Treatment: * Procedure Codes: G 0439 ANNUAL WELLNESS VST; PPS SUBSQT VST * Preventive Medicine: YOUR PREVENTIVE WELLNESS PLAN: B NH, Height, and Weight: The Recommended Frequency is: A nnually B lood Pressure: The Recommended Frequency is: E very 2 years, if BP </= 120/80 mm Hg, Annually, if BP >120-139/80-89 mm Hg V ision: The Recommended Frequency is: E very 3 years up to age 40, Every 2 years aged 40+ A bdominal Aortic Aneurysm: The Recommended Frequency is: O nce, between the age range of 65-75 and for those who have smoked 100+ cigarettes in lifetime C holesterol Testing: The Recommended Frequency is: R egularly beginning at age 20 with risk factors D iabetes Screening: The Recommended Frequency is: W ith a sustained BP >/= 135/80 mm Hg C olorectal Cancer Screening: The Recommended Frequency is: A nnually, Fecal Occult Blood Stool (FOBS), Every 5 years, Sigmoidoscopy with FOBS, Every 10 years, Colonoscopy P rostate Cancer Screening (Digital Rectal Exam [IRASEMA]/Prostate Specific Antigen [PSA]): The Recommended Frequency is: A nnually, age 50 or older S exually Transmitted Diseases (STDs): The Recommended Frequency is: A s necessary for those with risk factors D epression Screening: The Recommended Frequency is: A s necessary for those with risk factors A lcohol Misuse Screening: The Recommended Frequency is: A s necessary for those with risk factors P neumococcal (Pneumonia) Vaccine: The Recommended Frequency is: 1 -2 doses up to age 64, 1 dose age 65+ I nfluenza (Flu) Vaccine: The Recommended Frequency is: A nnually O ther: _ ___. M ajor Risk Factors: Your Major Risk Factors Include: D iabetes, Fall risk, Hypertension, Obesity, Smoking use, Other R ecommendations For Improvement The recommendations are: D iet, Exercise, Tobacco cessation, Weight management, Other A dditional Resources Included: f ollow-up instructions, handouts, referrals. C OVID FLU TDAP 10/2019 COLONOSCOPY EYE EXAM This plan was discussed, printed, and handed to patient. * Images: * Electronic signature of Cleopatra Echevarria on 03/29/2025 at 12:13 PM EST Sign off status: Pending * Provider: Verenice Echevarria, Date: 0 11/28/2024 Generated for Hernan conteh/Marcio/Robert on: 05/29/2024 12:13 PM EST History and Physical Notes * HPI (History of Present Illness) Category Sub-Category Detail Notes Category Not es Medicare Annual Visit Type of Visit -: Subsequ ent Annual Wellness Visit Language or Communication barrier addressed -: Y es Health Risk Assessment DEMOGRAPHICS: - - How old are you?: __ - How would you best describe your formerly [facility] [place]?: __ - How would you describe your marital st atus?: __ - How would you describe your employment status?: __ - How many children do you have?: None RISK ASSESSMENT: - - Do you currently use tobacco products? : No - Have you ever used tobacco products?: No - What type of tobacco do you use or hav e you used?: __ - (If cigarette smoker) How long have yo u smoked?: __ - (If cigarette smoker) How many cigaret gelacio do you smoke per day?: __ - How many alcoholic beverag es (i.e. 1oz hard liquor, one glass of wine, one bottle of beer) do you drink daily, on average?: None - Have you ever felt the need to cut gage n on drinking?: No - Have people annoyed you with criticism of your drinking?: No - Do you or have you felt guilty for dri nking?: No - Have you ever felt the nee d to drink first thing in the morning to steady your nerves or to get rid of a hangover?: No - How often do you exercise?: Never - How vigorously can you exercise?: Mini romero - How often do you use seatbelts?: Alway s - In the past month, how often have you had sex?: __ - Do you have any significan t difficulties or dysfunction during sex?: No, never - How many partners do you have?: __ - How often do you experience pain with sex?: Never - How often do you use condoms during se x?: Always MENTAL HEALTH ASSESSMENT: - - In the past two weeks, how often have you felt depressed, down or hopeless?: Never - In the past month, how often have you felt anxious or stressed?: Never - What is your average level of daily st ress?: None - In the past two weeks, how often have you felt a lack of pleasure or interest in doing things?: Never - In the past two weeks, how often have you had difficulty falling asleep or episodes of sleeping too long?: Never - In the past two weeks, how often have you had a lack of energy?: Never - In the past two weeks, how often have you had feelings of being better off or thoughts of harming yourself?: Never - Have you ever attempted to harm yourse lf?: No GENERAL HEALTH/PAIN ASSESSMENT: - - In the past month, how often did you e xperience pain?: Never - In the past month, how muc h has pain affected your ability to work?: Not at all - In the past month, how muc h has pain affected your ability to walk?: Not at all - In the past month, how muc h has pain affected your relationship with other people?: Not at all - On a scale of 1-10, how bad would you rate your average daily pain?: No pain - How would you describe the ease with which you can prepare your own food?: Very easy - How would you describe the ease with which you can bathe or clean yourself?: Very easy - How would you describe the ease with w hich you can dress yourself?: Very easy - How hard is it to use the toilet by yo urself?: Not hard at all - How would you describe the ease with which you can do your own shopping?: Very easy - How would you describe the ease with which you can get around your house?: Very easy - How would you describe your ability to pay your bills?: Very good - How would you describe you r ability to plan your daily and monthly budgets?: Very good - How would you describe your ability to do routine housework?: Very good HOME SAFETY/ASSISTANCE: - - Do you feel like you are safe in your current home?: Yes - How many times have you fallen in your home?: Never - How much would you need to change your living circumstances to feel safe?: Not at all - Do you feel that living somewhere else would be good for you?: No - How much help do you feel you need at home?: None at all - How much does your family help with da berto or routine chores?: Not at all Immunization Status addressed -: Yes Vision Screening -: No Depression Screening -: No Hearing Screening -: No Fall Risk and Home Safety -: Negative, n o falls in the past year, no difficulty walking, or getting out of bed or chair Medication evaluation and reconcilliatio n performed: Yes Vision screening recommended: Yes Literature offered to the patient: Yes Referrals: physical therapy offered for gait balance and mobility evaluation, fall prevention home evauation offered, DEXA screening offered Get Up and Go Evaluation: under 20 secon ds Psychosocial Risks -: No overt psychoso cial risks shown, observed, or mentioned Behavioral Risks -: Patient seems yesy y well adjusted and no behavorial issues noted Activities of daily living -: Not impaired Cognitive Screening -: No overt cognitiv e deficiency is apparent by direct observation Patient Care Team - No Providers on Record internal medicine This is a 59-year-old gentleman with history of right internal carotid artery aneurysm, subarachnoid hemorrhage admitted in November 2023 to [facility] status post repair, hypertension, anxiety depression and bipolar disorder panic attack, TBI at the age of [age] years old I have reviewed the records from [facility] says that patient had a CAT scan which showed subarachnoid hemorrhage in the prepontine cistern extended into the left sylvian fissure and the interior aspect of the third ventricle patient was seen by neurosurgery Dr. 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 patient was also fine at the time to have elevated creatinine of 1.2 with an unknown base and an uncontrolled blood pressure ranging in the 180s requiring nifedipine drip. After the basilar artery stent placement he was discharged on amlodipine 10 mg and also Plavix 75 mg daily along with simvastatin 40 mg daily. Patient is here today for a new PCP visit he does not remember his medications, he has not been taking amlodipine Plavix or statins.he has not seen a PCP for more than 1-2 years as he relocated from [place] He has history of anxiety and depression and is followed by a psychiatrist at once in [place] Dr. Wilfrid Burgess takes sertraline and Abilify. Patient continues to smoke 1 pack a day of cigarettes he sometimes smoked marijuana he does not drink any alcohol. He does not exercises. Examination Category Sub-Category Detail Notes Category Not es General Examination GENERAL APPEARANCE: Well dev eloped, well nourished, in no acute distress HEAD: Normocephalic, atrau matic EYES: Pupils equal, round, reactive to light and accommodation, sclera non-icteric EARS: Normal THROAT: Clear NECK/THYROID: Neck supple, full ra nge of motion, no cervical lymphadenopathy HEART: Normal, no murmurs, rubs, gallops LUNGS: Normal, scattered wh eezes throughout ABDOMEN: Soft, nontender, non distended, bowel sounds present, normal NEUROLOGIC: Nonfocal, appropriat e motor strength normal upper and lower extremities, sensory exam intact SKIN: Warm and dry, no juan a picious lesions EXTREMITIES: Normal PERIPHERAL PULSES: Normal BREASTS: __ MUSCULOSKELETAL: Normal MALE GENITOURINARY: __ FEMALE GENITOURINARY: __ ORAL CAVITY: Normal PODIATRIC: Normal Psychiatry Tiffany land clear con versation But forgetful. OROPHARYNX Normal SINUSES Normal Pickle Sorter
--- NOTE | ~2025-03-29 | CT_ITS ---
CLINICAL HISTORY: Fall CT cervical spine without contrast Comparison: None provided Findings: Normal vertebral body alignment. Multilevel degenerative disc disease. Hmet-[id number] central canal stenosis at C4-C5 and C5-C6. Mild central canal narrowing also present at C3-C4. No acute fractures or dislocations. No acute findings on limited view of the intracranial contents. Soft tissues of the neck are normal. No consolidation or effusion at the lung apices. IMPRESSION: No acute findings. This document has been electronically signed by: India Peng MD on 03/29/2025 14:08:29
--- NOTE | ~2025-03-29 | CT_ITS ---
CLINICAL HISTORY: Seizure CT head without contrast Comparison: CT/SR - CT HEAD WITHOUT IV CONTRAST - 04/15/24 03:13 EST Findings: There are chronic infarcts within the bilateral frontal lobes and involving the anterior aspect of the right temporal lobe and the lateral aspect of the left temporal lobe, without change. Remaining brain volume is age-appropriate. No mass, mass effect or intracranial hemorrhage. There is a stent within the right internal carotid artery. There is no sinus or mastoid fluid. The orbits are unremarkable. No skull fracture. IMPRESSION: No acute abnormality of the brain. Chronic infarcts bilaterally as above. This document has been electronically signed by: India Peng MD on 03/29/2025 14:04:21
--- NOTE | ~2025-03-29 | XR_ITS ---
CLINICAL HISTORY: Hypoxia 1 view chest x-ray Comparison: CR/SR - XR CHEST 1 VIEW - 04/15/24 03:12 EST Findings: The lungs are clear. Heart size is normal. No acute fracture. IMPRESSION: 1. No acute findings. This document has been electronically signed by: India Peng MD on 03/29/2025 14:03:48
[2025-03-29 11:34] VITALS: BP 162/104; BP 167/116; PULSE 101; PULSE 108; RESP 22; TEMP 36.7; O2SAT 95; O2SAT 96; BMI 31.2
--- NOTE | 2025-03-29 11:46 | ECG_ITS ---
Test Reason : seizure Blood Pressure : */* mmHG Vent. Rate : 93 BPM Atrial Rate : 93 BPM P-R Int : 142 ms QRS Dur : 88 ms QT Int : 364 ms P-R-T Axes : 65 1 67 degrees QTcB Int : 452 ms Normal sinus rhythm Normal ECG When compared with ECG of 16-Apr-2024 10:58, No significant change was found Referred By: Generic ED Physician Electronically Signed By: DIANE MORGAN
[2025-03-29 12:05] VITALS: BP 165/98; PULSE 98; RESP 20; O2SAT 93
--- NOTE | 2025-03-29 12:07 | ED.SEIZURE ---
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 Patient reports that he was very worked up , he was in a verbal altercation with his friends and neighbors, and after calling the police, does not recall the event. Reports that he believes he had a seizure, and believes he fell into the engel because his sneakers had met on them. Does report biting his tongue, and a mild loss of urine/urinary incontinence. No loss of bowels. Reports a residual headache. It was reported that he had a short period of confusion afterwards, but arrives independently to the ED. Denies any chest pain or pressure, shortness of breath, abdominal pain. No recent illnesses, fever, chills. No neck pain. Does not recall any head strike. Does not recall the entirety of the event. Denies any drug use, alcohol use. Does smoke cigarettes, 1 pack per day. Related Data Home Medications ?Medication ?Instructions ?Recorded ?Confirmed aripiprazole 5 mg tablet 5 mg BEDTIME 04/16/24 04/16/24 hydroxyzine pamoate 50 mg capsule 50 mg BID PRN Anxiety or Insomnia 04/16/24 04/16/24 sertraline 25 mg tablet 25 mg PO DAILY 04/16/24 04/16/24 Previous Rx's ?Medication ?Instructions ?Recorded albuterol sulfate 90 mcg/actuation 2 puff inhalation Q4-6H PRN 04/18/24 aerosol inhaler shortness of breath or wheezing #8.5 grams prednisone 20 mg tablet 40 mg (2 x 20 mg) PO DAILY 5 days 04/18/24 #10 tabs acetaminophen 500 mg tablet 1,000 mg (2 x 500 mg) PO Q6H PRN 02/17/25 (Tylenol Extra Strength) pain 10 days #60 tabs ibuprofen 400 mg tablet 400 mg PO Q6H PRN pain 10 days #60 02/17/25 tabs levetiracetam 500 mg tablet 500 mg PO BID 14 days #28 tabs 03/29/25 (Keppra) Allergies Allergy/AdvReac Type Severity Reaction Status Date / Time No Known Allergies Allergy Verified 03/29/25 11:37 Review of Systems Review of Systems: ROS is otherwise negative unless mentioned in HPI. [facility] Past Medical History Medical History Asthma Subarachnoid hemorrhage Social History Social History Household Members: None Housing: Other Housing Other:: trailer Do you presently have visiting nurse or other home services: No Patient Tobacco Use Status: Current everyday Tobacco user Tobacco use type: Cigarette Cigarettes Per Day: 1 Smoked in Last 30 Days: No Second Hand Smoke Exposure: No Use of substances other than those prescribed or required for medical reasons: No Advance Directives: No Advance Directives Information Provided: Yes Do you have a plan to hurt others: No Plan service: No Physical Exam Exam: Exam: Nursing notes and vital signs reviewed. Constitutional: Well-appearing, NAD. Alert. Oriented X3. Eyes: Pupils equal, round and reactive to light. ENT: Pharynx normal. Tongue without noted bleeding or laceration. Neck: Normal inspection. Neck supple. C-spine nontender, normal ROM. CVS: Normal heart rate and rhythm. Pulses normal. Respiratory: No respiratory distress. Breath sounds normal. Abdomen: Soft and nontender. Skin: Skin warm and dry. Normal skin color. Extremities: No lower extremity edema. Neuro: Oriented X 3. No motor deficit. Vital Signs: Vital Signs: Last Vital Signs Temp 98.1 F 03/29/25 11:34 Pulse 82 03/29/25 14:51 Resp 16 03/29/25 14:51 BP 158/87 H 03/29/25 14:51 Pulse Ox 95 03/29/25 14:51 O2 Del Method Room Air 03/29/25 14:51 BMI result Body Mass Index 31.2 Medications Administered Discontinued Medications Generic Name Dose Route Start Last Admin Trade Name Freq PRN Reason Stop Dose Admin Sodium Chloride 1,000 mls @ 999 mls/hr 03/29/25 12:05 03/29/25 12:25 Ns IV 03/29/25 13:05 999 mls/hr .Q1H1M ONE Administration Medical Decision Making Medical Decision Making MDM Narrative: On exam he appears well, nonfocal neurological exam. Fully alert oriented, answering all questions appropriately. He reports that the seizure was witnessed by police as well as his friends, but he independently brought himself to the ED today. He reports distress over a verbal altercation with his neighbors. He reports a remote history of TBI, seizure disorder, no longer on antiepileptics. Per the chart, he did have a subarachnoid hemorrhage with an underlying ruptured arterial aneurysm any, and is now status post neurosurgical intervention from [facility]. He is now on Plavix. We will obtain CT imaging of the head given the seizure versus syncope, as well as CT of the neck with concern for underlying fall. We will also obtain lab work, EKG, urine drug screen and reassess. He does have documented mild tachycardia, however I have no clinical concern for sepsis, this is likely due to anxiety/stress on ED arrival, as upon my assessment HR is in the 90s. NSR EKG. 1527-- Upon assessment, he appears well. Reports improvement in his symptoms. CT of the head with no acute abnormality, he does have chronic infarcts without any change, and a stent is present in the right internal carotid artery. CT of the C-spine without any abnormality. X-ray of the chest with no acute pneumonia. Initial lactic acid level was mildly high at 2.7, repleted with a L of fluid bolus, and on recheck is 0.9. Likely elevated due to acute dehydration/stress, possibly due to seizure. Will add on troponin, discuss possibly initiating anti-epileptics, patient cannot recall what seizure medicine he has previously been on. 1630-- initial troponin is flat, plan to repeat this however the patient has since declined and is now pacing in the room, requesting discharge. He expresses understanding that a 2nd cardiac enzyme has not been performed, he does not want this lab testing done. We discussed placing him on Keppra 500 mg b.i.d. and follow up with Neurology given what sounds like a seizure today, he is agreeable to this plan. I did consider possible syncope/panic attack, though he reports biting his tongue and urinary incontinence. I do not clinically see any tongue laceration on exam, or obvious urinary incontinence on his clothing. However with concern of seizure history, will initiate anti-epileptics and neurology f/u. He tells me that he has animals at home and can not stay in the ED any longer. Was provided strict return precautions to the ED, expressed understanding with plan of care. Differential Diagnosis Differential Diagnoses: The differential diagnosis associated with the presentation includes seizure, syncope, drug use/overdose, anxiety/panic attack, electrolyte disturbance, intracranial hemorrhage, infarct Admission/Observation Consideration of admission/observation: Escalation of care including admission/observation considered (Not indicated) Lab Data MDM Lab Attestation statement: I reviewed the patient's lab results. (Overall reassuring, mildly elevated lac which has since resolved after IVF, neg urine tox. ) 03/29/25 12:23 03/29/25 12:23 Labs: Lab Results 03/29/25 03/29/25 Range/Units 12:23 14:59 WBC 8.7 (4.8-10.8) X10*3/uL RBC 5.46 (4.60-5.80) X10*6/uL Hgb 17.1 (14.0-18.0) g/dl Hct 49.2 (42.0-52.0) % MCV 90.1 (80.0-98.0) fL MCH 31.3 (27.0-33.0) pg MCHC 34.8 (31.0-36.0) g/dl RDW 12.6 (11.0-16.0) % Plt Count 277 (160-400) X10*3/uL MPV 9.9 (9.4-12.4) fL Immature Gran % (Auto) 0.3 (0.0-0.4) % Neut % (Auto) 73.2 H (45-73) % Lymph % (Auto) 14.8 L (20-40) % Crisp % (Auto) 10.2 (2-11) % Eos % (Auto) 1.0 (0-4) % Baso % (Auto) 0.5 (0-2) % Lymph # (Auto) 1.3 (1.2-4.9) X10*3/uL Crisp # (Auto) 0.9 (0.1-1.2) X10*3/uL Eos # (Auto) 0.1 (0.0-0.4) X10*3/uL Baso # (Auto) 0.0 (0.0-0.2) X10*3/uL Abs Immat Gran (auto) 0.03 (0.00-0.03) X10*3/uL Absolute Neuts (auto) 6.3 (2.0-8.3) x10*3/uL Absolute Nucleated RBC 0.000 (0.0-0.012) X10*3/uL Nucleated RBC % (auto) 0.0 (0.0-0.2) /100WBC Sodium 143 (135-145) mmol/L Potassium 3.7 (3.3-5.1) mmol/L Chloride 109 H (96-108) mmol/L Carbon Dioxide 22 (22-29) mmol/L Anion Gap 16 (12-20) BUN 15 (9-16) mg/dL Creatinine 1.28 (0.5-1.4) mg/dL Estim Creat Clear Calc 75.4 Estimated GFR 58 Random Glucose 120 H (60-115) mg/dL Lactic Acid 2.7 H* (0.5-2.0) mmol/L Lactic Acid F/U @ 2Hr 0.9 (0.5-2.0) mmol/L Calcium 9.5 D (8.4-10.2) mg/dL Magnesium 2.1 (1.6-2.6) mg/dL Total Bilirubin 0.6 (0.0-1.0) mg/dL AST 35 (5-37) U/L ALT 34 (0-40) U/L Alkaline Phosphatase 88 (39-117) U/L Troponin I High Sens 11.0 (<3.5-35.0) ng/L Total Protein 7.7 (6.5-8.0) g/dL Albumin 4.7 (3.5-5.0) g/dL Urine Opiates Screen Not Detected (Not Detect) Ur Buprenorphine Scrn Not Detected (Not Detect) ng/mL Ur Oxycodone Screen Not Detected (Not Detect) ng/mL Urine Methadone Screen Not Detected (Not Detect) ng/mL Urine Fentanyl Screen Not Detected (Not Detect) Ur Barbiturates Screen Not Detected (Not Detect) Ur Phencyclidine Scrn Not Detected (Not Detect) Ur Amphetamines Screen Not Detected (Not Detect) U Benzodiazepines Scrn Not Detected (Not Detect) Urine Cocaine Screen Not Detected (Not Detect) U Marijuana (THC) Screen Not Detected (Not Detect) Ethyl Alcohol < 10 mg/dL Independent Interpretation I performed an independent interpretation of an: EKG and Plain X-Ray Interpretation: Rate: 93 Rhythm: NSR [place]: 65/1/67 Normal P waves. Normal JERMAINE. Normal QRS complex. ST T wave : no dep, elev qTC: 452 prior studies:similar The study has been interpreted contemporaneously by me. I have reviewed the patient's imaging and agree with the radiologist's findings. Radiology Impression Discussion of test interpretation with radiology: I have reviewed the radiologist's reading. Radiologist Impression: CT Head WO: IMPRESSION: No acute abnormality of the brain. Chronic infarcts bilaterally as above. CT C-spine WO: IMPRESSION: No acute findings. CXR: IMPRESSION: 1. No acute findings. Independent Historian None External Record Review External record reviewed: Other (prior ER visit notes) Chronic Conditions Patient?s care impacted by: Hypertension Social Determinants Patient?s care significantly limited by Social Determinants of Health including: Alcoholism and drug addiction in family and Problems related to primary support group Discharge Plan Discharge Clinical Impression: Seizure Patient Disposition: Home, Self-Care Instructions: Recurrent Seizures in Adults (ED) Additional Instructions: As we discussed, your workup here is overall reassuring. You had CT imaging of the head, which re-demonstrated your old strokes, and a patent stent in your carotid artery. The CT of your neck showed no acute abnormality, and the x-ray of your chest showed no pneumonia. You received IV fluids. Your EKG was reassuring, we wanted to obtain a 2nd sample for a cardiac enzyme test, but you have declined at this time and want to come home. Given your report of a seizure, we have started you on Keppra, and antiseizure medication, that should be taken twice per day, once in the morning and once in the evening. It is also very important that you follow up with Neurology within the next 1-3 days. With any worsening complaints, it is important that you return to the ED for further assessment. Prescriptions: New levetiracetam [Keppra] 500 mg tablet 500 mg PO BID 14 Days Qty: 28 0RF No Action hydroxyzine pamoate 50 mg capsule 50 mg BID PRN (Reason: Anxiety or Insomnia) sertraline 25 mg tablet 25 mg PO DAILY aripiprazole 5 mg tablet 5 mg BEDTIME prednisone 20 mg tablet 40 mg PO DAILY 5 Days Qty: 10 0RF albuterol sulfate 90 mcg/actuation HFA aerosol inhaler 2 puff inhalation Q4-6H PRN (Reason: shortness of breath or wheezing) Qty: 8.5 1RF ibuprofen 400 mg tablet 400 mg PO Q6H PRN (Reason: pain) 10 Days Qty: 60 0RF acetaminophen [Tylenol Extra Strength] 500 mg tablet 1,000 mg PO Q6H PRN (Reason: pain) 10 Days Qty: 60 0RF Referrals: [facility] [Provider Group] Ron Maria MD [Primary Care Provider, Primary Care] Print Language: Montserratian
--- OUTSIDE RECORDS SUMMARY | 2025-03-29 12:13 | XMS_ITS | Patient Health Record ---
Author Organization [facility] [address] [place] [address] Address [address] [place] [id number] Care Team Providers Care Corrections Caseworker Name Role Phone Yessenia Lugo MD, Alvaro Primary Care Provider Unav ailable Reason For Referral No Information Plan Of Treatment No Information Insurance Providers Payer Name Payer Address Payer Phone Subscriber Number Group Number Insured Name Patient Relationship to Insured Coverage Start Date Coverage End Date [employer] [place] [address] [place] [phone] [id number] Jose Ruth Self - patient is the insured
--- OUTSIDE RECORDS SUMMARY | 2025-03-29 12:13 | XMS_ITS | Patient Health Record ---
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) Active confirmed Problem Information temporarily unavailable HTN (hypertension), benign (I10) Active confirmed Vital Signs Heart Rate 85 /min 10/01/2024 Temperature 98.7 degrees Fahrenheit 10/01/2024 Oximetry 99 % 10/01/2024 Blood pressure diastolic 90 mm Hg 10/01/2024 Height 5'11'' in 10/01/2024 Blood pressure systolic 150 mm Hg 10/01/2024 Weight 223.2 lbs 10/01/2024 BMI 31.13 kg/m2 10/01/2024 Encounters Encounter Location Date Provider Diagnosis [facility] [address] [place] [address] 11/28/2024 [facility] [address] [place] [address] 01/22/2025 [facility] [address] [place] [address] 10/01/2024 Arocricket Echevarria HTN (hypertension), benign I10 ; Hyperlipidemia, mixed E78.2 ; Tobacco dependence F17.200 and Memory deficit following nontraumatic subarachnoid hemorrhage I69.011 [facility] [address] [place] [address] 11/28/2024 Rick Echevarria HTN (hypertension), benign I10 and Encounter for general adult medical examination without abnormal findings Z00.00 Assessments Encounter Date Diagnosis (ICD Code) Assessment Notes Treatment Notes Treatment Clinical Notes Section Notes 11/28/2024 HTN (hypertension), benign (ICD-10 - I10) 10/01/2024 HTN (hypertension), benign (ICD-10 - I10) [...] without abnormal findings (ICD-10 - Z00.00) 10/01/2024 Hyperlipidemia, mixed (ICD-10 - E78.2) 59-year-old [...] [facility] [...] work slip has been given today. 10/01/2024 Tobacco dependence (ICD-10 - F17.200) 59-year-old [...] Name Order Date CBC with Diff, Platelet, [id number] 06/2024 Albumin/Creatinine Ratio,[id number] Lipid Panel With LDL/HDL [id number] Comp. Metabolic Panel [phone] Insurance Providers Payer Name Payer Address Payer Phone Subscriber Number Group Number Insured Name Patient Relationship to Insured Coverage Start Date Coverage End Date Medicare [address] [place] [phone] [id number] Jose Ruth Self - patient is the insured [facility] [address] [address] [place] [address] [id number] Jose Ruth Self - patient is the insured Medical [...]
[2025-03-29 12:31] LABS: MANUAL DIFF FLAG NO
[2025-03-29 12:34] LABS: Hematocrit 49.2 % (42.0-52.0); Hemoglobin 17.1 g/dl (14.0-18.0); Imm Gran Abs Auto 0.03 X10*3/uL (0.00-0.03); Imm Gran Pct Auto 0.3 % (0.0-0.4); Lymphocytes Absolute Auto 1.3 X10*3/uL (1.2-4.9); Mean Corpuscular HGB Conc 34.8 g/dl (31.0-36.0); Mean Corpuscular Hemoglobin 31.3 pg (27.0-33.0); Mean Corpuscular Volume 90.1 fL (80.0-98.0); NRBC Abs Auto 0.000 X10*3/uL (0.0-0.012); NRBC Pct Auto 0.0 /100WBC (0.0-0.2); Platelet Count 277 X10*3/uL (160-400); Red Blood Count 5.46 X10*6/uL (4.60-5.80); White Blood Count 8.7 X10*3/uL (4.8-10.8)
[2025-03-29 12:56] LABS: Alanine Aminotransferase 34 U/L (0-40); Albumin Level 4.7 g/dL (3.5-5.0); Alkaline Phosphatase 88 U/L (39-117); Anion Gap 16 (12-20); Aspartate Amino Transferase 35 U/L (5-37); Blood Urea Nitrogen 15 mg/dL (9-16); Calcium 9.5 mg/dL (8.4-10.2); Carbon Dioxide 22 mmol/L (22-29); Chloride 109 mmol/L (96-108); Creatinine Clr Calc Pharmacy 75.4; Estimated Glomerular Filt Rate 58; Magnesium 2.1 mg/dL (1.6-2.6); Potassium 3.7 mmol/L (3.3-5.1); Sodium 143 mmol/L (135-145); Total Protein 7.7 g/dL (6.5-8.0)
[2025-03-29 14:31] LABS: Reflex Lactate? Lactic Acid Added
[2025-03-29 14:51] VITALS: BP 158/87; PULSE 82; RESP 16; O2SAT 95
[2025-03-29 15:23] LABS: ~Lactic Acid-LAB USE ONLY 0.9 mmol/L (0.5-2.0)
[2025-03-29 15:24] LABS: Cannabinoid Screen Urine Not Detected (Not Detect)
[2025-03-29 15:52] LABS: Troponin-I High Sensitivity 11.0 ng/L (<3.5-35.0)
[2025-03-29 16:49] VITALS: BP 158/87; PULSE 82; RESP 16; TEMP -17.7; TEMP 0; O2SAT 95
== END 2025-03-29 16:49 | disposition home or self-care (01) ==
PROVIDERS: Nurse Practitioner; Emergency Provider Emergency Medicine; PCP Hospitalist
DX: R56.9 Unspecified convulsions (principal); I10 Essential (primary) hypertension; Z79.899 Other long term (current) drug therapy; Z79.01 Long term (current) use of anticoagulants; Z51.81 Encounter for therapeutic drug level monitoring
CPT/HCPCS: 36415; 70450; 71045; 72125; 80053; 80307; 83605; 83735; 84484; 85025; 93005; 99284

== ENCOUNTER → 2025-03-29 11:46 | Outpatient (BNV) | payer MEDICARE, MEDICAID, SELFPAY | PROVIDERS: Emergency Provider Emergency Medicine; PCP Hospitalist; Visit Provider Internal Medicine | DX: R56.9 Unspecified convulsions (principal) | CPT/HCPCS: 93010 ==

== ENCOUNTER → 2025-03-29 12:05 | Outpatient (BNV) | payer MEDICARE, MEDICAID, SELFPAY | PROVIDERS: PCP Hospitalist; Visit Provider Radiology Diagnostic Radiology | DX: Z04.3 Encounter for examination and observation following other accident (principal); R56.9 Unspecified convulsions; R09.02 Hypoxemia | CPT/HCPCS: 70450; 71045; 72125 ==

== ENCOUNTER 2025-04-06 16:46 | Emergency (ER) | payer MEDICARE, MEDICAID, SELFPAY ==
[2025-04-06 16:50] VITALS: BP 135/86; PULSE 76; RESP 18; TEMP 36.3; O2SAT 97; O2SAT 98; BMI 31.1
--- NOTE | 2025-04-06 17:33 | ED_ITS ---
HPI - General Adult General Chief complaint: ETOH/Substance Use Stated complaint: Seizures ETOH PD on board Time Seen by Provider: 04/06/25 17:32 Source: patient, EMS, RN notes reviewed and old records reviewed Mode of arrival: EMS Limitations: no limitations History of Present Illness ED Provider: ELSA Mcclellan HPI narrative: 59-year-old male with medical history of asthma, COPD presents to the ED by EMS after verbal altercation with his neighbor. Patient is very agitated when I enter the room, yelling that he does not want to be here and does not know why he is here. When trying to attempt to get the story patient states he was arguing with his neighbor who is in the process of getting evicted and causing issues with all the other tenents of the apartment building and was getting himself worked up . Patient states he has history of asthma and due to his yelling had a moment of difficulty breathing and did not have his inhaler to use. patient denies any physical altercation, injury or trauma. Patient denies any history of seizures or any prior seizure. Patient states he had 3 mixed drinks earlier this afternoon and is not intoxicated. Patient is perseverating on his dog who was alone in his apartment. Patient denies any physical complaints including, chest pain, shortness of breath, difficulty breathing, headaches, visual changes, abdominal pain, nausea, vomiting, diarrhea, urinary changes Related Data Home Medications ?Medication ?Instructions ?Recorded ?Confirmed aripiprazole 5 mg tablet 5 mg BEDTIME 04/16/24 hydroxyzine pamoate 50 mg capsule 50 mg BID PRN Anxiet y or Insomnia 04/16/24 04/16/24 sertraline 25 mg tablet 25 mg PO DAILY 04/16/2403/31 Previous Rx's ?Medication ?Instructions ?Recorded albuterol sulfate 90 mcg/actuation 2 puff inhalation Q 4-6H PRN 04/18/24 aerosol inhaler shortness of breath or wheez ing #8.5 grams prednisone 20 mg tablet 40 mg (2 x 20 mg) PO DAILY 5 days 04/18/24 #10 tabs acetaminophen 500 mg tablet 1,000 mg (2 x 500 mg) PO Q 6H PRN 02/17/25 (Tylenol Extra Strength) pain 10 days #60 tabs ibuprofen 400 mg tablet 400 mg PO Q6H PRN pain 10 da ys #60 02/17/25 tabs levetiracetam 500 mg tablet 500 mg PO BID 14 days #28 tabs 03/29/25 (Keppra) Allergies Allergy/AdvReac Type Severity Reaction Status Date / Time No Known Allergies Allergy Verified 04/06/25 16:58 Review of Systems Review of Systems: Yes all other systems are reviewed and are negative PMFSH Past Medical History Attestation statement: The following information was validated with the patient. Source: old records reviewed and nursing notes reviewed Medical History Asthma Subarachnoid hemorrhage Social History Social History Household Members: None Housing: Other Housing Other:: trailer Do you presently have visiting nurse or other home services: No Patient Tobacco Use Status: Current everyday Tobacco user Tobacco use type: Cigarette Cigarettes Per Day: 1 Second Hand Smoke Exposure: No service: No Physical Exam ED Vital Signs: Vital Signs - 24 hr 04/06/25 16:50 Temperature 97.4 F Pulse Rate 76 Respiratory Rate 18 Blood Pressure 135/86 Pulse Oximetry 97 Oxygen Delivery Method Room Air BMI result Body Mass Index 31.1 GENERAL APPEARANCE: ?AxOx4, generally well-appearing, no acute distress , patient without slurred speech, ataxia, or alcoholic odor on his breath, patient is clinically sober. HEENT: ?NC, AT. MMM. EOMI, clear conjunctiva, oropharynx clear. NECK: ?Supple without lymphadenopathy.? No stiffness or restricted ROM. HEART:? Normal rate and regular rhythm, normal S1/S2, no m/r/g LUNGS:? CTAB, moving air well. No crackles or wheezes are heard. ABDOMEN: ?Soft, nontender, nondistended BACK: No CVAT, no obvious deformity. EXTREMITIES: ?Without cyanosis, clubbing or edema. NEUROLOGICAL: ?Grossly nonfocal. Alert and oriented, moving all 4 extremities. Observed to ambulate with normal gait. Skin: ?Warm and dry without any rash. Medical Decision Making Medical Decision Making MDM Narrative: 59-year-old male with medical history of asthma, COPD presents to the ED by EMS after verbal altercation with his neighbor. Patient is very agitated when I enter the room, yelling that he does not want to be here and does not know why he is here. When trying to attempt to get the story patient states he was arguing with his neighbor who is in the process of getting evicted and causing issues with all the other tenents of the apartment building and was getting himself worked up . Patient states he has history of asthma and due to his yelling had a moment of difficulty breathing and did not have his inhaler to use. patient denies any physical altercation, injury or trauma. Patient denies any history of seizures or any prior seizure. Patient states he had 3 mixed drinks earlier this afternoon and is not intoxicated. Patient is perseverating on his dog who was alone in his apartment. Patient denies any physical complain ts including, chest pain, shortness of breath, difficulty breathing, headaches, visual changes, abdominal pain, nausea, vomiting, diarrhea, urinary changes. patient became very agitated while I was in the room speaking to him, screaming and cursing which required security presence. I was able to calm the patient down and deescalate the situation however patient is not agreeable to stay at this time as I believe he needs work up to ensure no seizure, dysrhythmia, electrolyte abnormality, and chest x-ray for evaluation of possible asthma exacerbation. I went to speak with my attending physician Dr. Samantha Mosley who agreed to go speak with the patient. Patient is demanding to leave AMA. I have fully discussed with patient the risks of leaving today without a full workup which includes severe physical disability, heart attack, respiratory failure, seizure, and . Patient was counseled on the severity of his situation in the importance of a full medical workup to ensure his health and safety. Patient is with full mental faculties and exhibits complete understanding of leaving without medical work up. Patient was advised to not operate heavy machinery, and follow up with his primary care doctor. patient is clinically sober and has a sober ride home with a friend who presented into the department to get him. VSS stable, patient currently in no distress. Dr. Samantha Mosley-I discussed the case with the patient. He understands that there is risk of asthma. There is a risk of seizure. That we want to do a full workup. He understood the risk including having risk of seizure risk of irregular heartbeat risk of electrolyte disturbance. Patient did understood the pros and cons of staying. Understood the risk of leaving including severe injury if he drives. Or operate any machinery. We did provide him with Neurology follow- up. We encouraged him to come back if he change his mind. Clinically patient is sober he is awake alert he is oriented he understood the consequences. he is estranged from his kids. Does not wish to talk to him. His parents . patient is friend is here. Aware and understood the consequences. Roseline ent has signed out against medical advice. Currently in stable condition. Differential Diagnosis Differential Diagnoses: The differential diagnosis associated with the presentation includes Seizure Syncope Dysrhythmia Electrolyte abnormality Asthma exacerbation Admission/Observation Consideration of admission/observation: Escalation of care including admission/observation considered Independent Historian Clinical information obtained from an independent historian. History obtained from or confirmed by: EMS External Record Review External record reviewed: Inpatient record, Office record and Outpatient record Chronic Conditions Patient?s care impacted by: Other ( asthma, COPD) Social Determinants Patient?s care significantly limited by Social Determinants of Health including: Other Social Determinant of Health Discharge Plan Discharge Clinical Impression: Alcoholic intoxication Patient Disposition: Left Against Medical Advice Additional Instructions: You were evaluated in the emergency department today after police department was concerned that you were having a seizure. We were attempting to do blood work, to confirm that you were not having a seizure but you denied and are leaving against medical advice. You are risking lifetime disability and even by leaving today without getting a workup done to ensure you were not having a seizure. You were explained the consequences of leaving today without getting a proper work up. You can retur to the emergency department at any time if you change your mind and would like a proper workup. Please return to the emergency department if you experience any concerning symptoms. Prescriptions: No Action hydroxyzine pamoate 50 mg capsule 50 mg BID PRN (Reason: Anxiety or Insomnia) sertraline 25 mg tablet 25 mg PO DAILY aripiprazole 5 mg tablet 5 mg BEDTIME prednisone 20 mg tablet 40 mg PO DAILY 5 Days Qty: 10 0RF albuterol sulfate 90 mcg/actuation HFA aerosol inhaler 2 puff inhalation Q4-6H PRN (Reason: shortness of breath or wheezing) Qty: 8.5 1RF ibuprofen 400 mg tablet 400 mg PO Q6H PRN (Reason: pain) 10 Days Qty: 60 0RF acetaminophen [Tylenol Extra Strength] 500 mg tablet 1,000 mg PO Q6H PRN (Reason: pain) 10 Days Qty: 60 0RF levetiracetam [Keppra] 500 mg tablet 500 mg PO BID 14 Days Qty: 28 0RF Stand Alone Forms: Against Medical Advice Interventions: ED Discharge Assessment Last Done: 04/06/25 18:17 Discharge Date/Time: 04/06/25 18:17 Print Language: Citizen [place]
[2025-04-06 18:17] VITALS: BP 135/86; PULSE 76; RESP 18; TEMP 36.3; O2SAT 97
--- NOTE | 2025-04-06 18:17 | PC.NURSE ---
refused all treatment. left AMA. cleared by Dr. Mosley and was DCed with sober ride
== END 2025-04-06 18:17 | disposition left against medical advice (07) ==
PROVIDERS: Emergency Provider Emergency Medicine Emergency Medical Services
DX: F10.120 Alcohol abuse with intoxication, uncomplicated (principal); Y90.9 Presence of alcohol in blood, level not specified; J45.909 Unspecified asthma, uncomplicated; F17.210 Nicotine dependence, cigarettes, uncomplicated; Z79.899 Other long term (current) drug therapy
CPT/HCPCS: 99282